=== PATIENT | female | born 1945 | race Two or more races ===

== ENCOUNTER 2018-07-19 23:43 | Emergency (ER) | payer OTHER, MEDICAID ==
[~2018-07-19] VITALS: Ht 157.5 cm; Wt 65.3 kg
[2018-07-20] MEDS ORDERED: LORazepam 2MG/ML-1ML VIAL IV ONE ×2 (00:30→03:30)
[2018-07-20] MEDS ORDERED: cloNIDine HCL 0.1 MG TAB PO ONE (01:45)
[2018-07-20] MEDS ORDERED: InsuLIN REG 1unit/0.01ml Soln (100units/ml) IV ONE (01:45)
[2018-07-20 02:08] LABS: Urine Bacteria MANY /hpf (None Seen); Urine Blood TRACE /uL (Negative); Urine WBC 87 /hpf (0 - 5)
[2018-07-20 04:30] VITALS: BP 122/55
== END 2018-07-20 04:24 | disposition home or self-care (01) ==
LOC: EDBD 23:43 → ER 23:47
DX: S20.212A Contusion of left front wall of thorax, initial encounter (principal); N39.0 Urinary tract infection, site not specified; E11.9 Type 2 diabetes mellitus without complications; E78.5 Hyperlipidemia, unspecified; I10 Essential (primary) hypertension; Z90.49 Acquired absence of other specified parts of digestive tract; Z88.6 Allergy status to analgesic agent; Z88.8 Allergy status to other drugs, medicaments and biological substances; W51.XXXA Accidental striking against or bumped into by another person, initial encounter; Y93.89 Activity, other specified; Y92.098 Other place in other non-institutional residence as the place of occurrence of the external cause; Y99.8 Other external cause status
CPT/HCPCS: 71250; 81001; 82962; 93005; 96374; 96375; 96376; 99284; J1815; J2060; J7030

== ENCOUNTER 2020-12-31 22:40 | Inpatient (IN) | payer OTHER ==
[~2020-12-31] VITALS: Ht 160 cm; Wt 99.6 kg
[~2020-12-31 22:40] MED LIST: LEVEMIR SC; LISI-275 PO
[2021-01-01 00:02] LABS: Basophils # (auto) 0.1 10 ^3/uL (0-0.2); Basophils % (auto) 1.8 % (0.0-2.0); Eosinophils # (auto) 0 10 ^3/uL (0-0.8); Eosinophils % (auto) 0.1 % (0.0-7.0); Hematocrit 38.7 % (36.0-46.0); Hemoglobin 13.2 g/dL (12.2-16.2); Lymphocytes # (auto) 0.4 10 ^3/uL (0.4-5.4); Lymphocytes % (auto) 8.9 % (10.0-50.0); Mean Corpuscular Hemoglobin 30.2 pg (28.0-32.0); Mean Corpuscular Hgb Conc. 34.1 g/dL (32.0-36.0); Mean Corpuscular Volume 88.4 fL (80.0-100.0); Monocytes # (auto) 0.4 10 ^3/uL (0-1.3); Monocytes % (auto) 7.8 % (0.0-12.0); Neutrophils # (auto) 3.8 10 ^3/uL (1.6-8.6); Neutrophils % (auto) 81.4 % (37.0-80.0); Nucleated Red Blood Cells % 0.1 %; Red Blood Cells 4.38 10^6/uL (4.0-5.20); Red Cell Distribution Width 14.1 % (11.8-14.3); White Blood Cell 4.7 10^3/uL (4.4-10.8)
[2021-01-01 00:19] LABS: INR 0.96 (0.9-1.15); Partial Thromboplastin Time 27.7 sec (23.6-33.0)
[2021-01-01 00:21] LABS: Albumin 2.3 g/dL (3.4-5.0); BUN/Creatinine Ratio 18.1; Calcium 8.2 mg/dL (8.5-10.1); Magnesium 2.3 mg/dL (1.6-2.6); Potassium 4.4 mmol/L (3.5-5.1)
[2021-01-01 00:26] LABS: Bilirubin, Total 0.4 mg/dL (0.2-1.0); Total Protein 7.1 g/dL (6.4-8.2)
[2021-01-01 03:18] LABS: Urine Amorphous Crystal FEW /hpf (None Seen); Urine Bacteria MANY /hpf (None Seen); Urine Blood 1+ /uL (Negative); Urine Specific Gravity 1.015 (1.001-1.035); Urine WBC 342 /hpf (0 - 5); Urine WBC Clumps PRESENT /hpf (None Seen)
[2021-01-01] MEDS ORDERED: HEPARIN DRIP/D5W 100UNITS/ML 250 ML IV SCH (04:15)
[2021-01-01] MEDS ORDERED: HEPARIN SODIUM (PORCINE) 5000 UNITS/ML 1ML VIAL IV ONE (04:15)
[2021-01-01] MEDS ORDERED: MORPHINE SULFATE INJECTION 2 MG/ML SYRG IV PRN ×3 (09:00→15:30)
[2021-01-01] MEDS ORDERED: NITROGLYCERIN 0.4 MG SL TAB SL PRN (09:00)
[2021-01-01 13:00] VITALS: BP 139/67
[2021-01-01] MEDS ORDERED: cefTRIAXone 1GM/50ML D5W 50 ML IV ONE (15:30)
[2021-01-01] MEDS ORDERED: ONDANSETRON HCL 4 MG/2 ML VIAL IV PRN (15:30)
[2021-01-01] MEDS ORDERED: DEXTROSE (50%) 50ML SYRG IV PRN (15:30)
[2021-01-01] MEDS ORDERED: REMDESIVIR PER PHARMACY 0 ML IV SCH (15:30)
[2021-01-01] MEDS: SODIUM CHLORIDE 0.9% 1,000 ML IV SCH (16:26)
[2021-01-01] MEDS: ACETAMINOPHEN 500 MG TAB PO PRN (16:27)
[2021-01-01 17:00] VITALS: BP 154/83
[2021-01-01] MEDS: ACCU-CHEK COMFORT CURVE STRIP VI SCH ×2 (17:46→22:06)
[2021-01-01] MEDS: InsuLIN REG 1unit/0.01ml Soln (100units/ml) SC SCH ×2 (17:47→22:08)
[2021-01-01] MEDS ORDERED: ATOR20TA50 PO (18:32)
[2021-01-01] MEDS ORDERED: CLOP75TA70 PO (18:32)
[2021-01-01] MEDS ORDERED: DONETAB6 PO (18:32)
[2021-01-01] MEDS ORDERED: PRIM50TA27 PO (18:32)
[2021-01-01] MEDS ORDERED: ALEN70TA74 PO (18:32)
[2021-01-01] MEDS ORDERED: ASPI-543 PO (18:32)
[2021-01-01] MEDS ORDERED: MEMA1TAB3 PO (18:32)
[2021-01-01] MEDS ORDERED: LEVEMIR SC (18:33)
[2021-01-01] MEDS ORDERED: HYDR1TAB97 PO (18:33)
[2021-01-01] MEDS ORDERED: INSU1INJ3 SC (18:33)
[2021-01-01 19:21] LABS: Albumin 1.9 g/dL (3.4-5.0); Calcium 7.8 mg/dL (8.5-10.1); Potassium 4.3 mmol/L (3.5-5.1)
[2021-01-01 19:27] LABS: BUN/Creatinine Ratio 20.6; Bilirubin, Total 0.3 mg/dL (0.2-1.0); Total Protein 6.5 g/dL (6.4-8.2)
[2021-01-01 21:38] VITALS: BP 101/59
[2021-01-01] MEDS ORDERED: ENOXAPARIN SOD 40 MG/0.4 ML SYRINGE SC SCH (22:00)
[2021-01-01] MEDS: FLORASTOR (S. BOULARDII) 250 MG CAP PO SCH (22:06)
[2021-01-01] MEDS: DOXYCYCLINE 100MG/250ML 250 ML IV SCH (22:06)
[2021-01-01] MEDS: BUDESONIDE (INHALATION) 180 MCG IH IN SCH (22:11)
[2021-01-01] MEDS: ALBUTEROL SULF HFA 90MCG INH 200DOSE IN PRN (22:11)
[2021-01-02] MEDS: ACETAMINOPHEN 500 MG TAB PO PRN ×2 (01:28→08:17)
[2021-01-02] MEDS: SODIUM CHLORIDE 0.9% 1,000 ML IV SCH ×3 (06:57→23:14)
[2021-01-02] MEDS: ACCU-CHEK COMFORT CURVE STRIP VI SCH ×4 (06:57→22:00)
[2021-01-02] MEDS: InsuLIN REG 1unit/0.01ml Soln (100units/ml) SC SCH ×4 (06:59→23:07)
[2021-01-02] MEDS: ALBUTEROL SULF HFA 90MCG INH 200DOSE IN PRN (07:06)
[2021-01-02] MEDS: BUDESONIDE (INHALATION) 180 MCG IH IN SCH ×2 (07:07→22:00)
[2021-01-02] MEDS: cefTRIAXone 1GM/50ML D5W 50 ML IV SCH (08:17)
[2021-01-02 09:00] VITALS: BP 136/95
[2021-01-02] MEDS ORDERED: IVERMECTIN 3 MG TAB PO SCH (10:00)
[2021-01-02 10:28] LABS: Basophils # (auto) 0 10 ^3/uL (0-0.2); Basophils % (auto) 0.5 % (0.0-2.0); Eosinophils # (auto) 0 10 ^3/uL (0-0.8); Hematocrit 33.1 % (36.0-46.0); Hemoglobin 11.4 g/dL (12.2-16.2); Lymphocytes # (auto) 0.5 10 ^3/uL (0.4-5.4); Mean Corpuscular Hemoglobin 29.8 pg (28.0-32.0); Mean Corpuscular Hgb Conc. 34.5 g/dL (32.0-36.0); Mean Corpuscular Volume 86.5 fL (80.0-100.0); Monocytes # (auto) 0.5 10 ^3/uL (0-1.3); Monocytes % (auto) 13.4 % (0.0-12.0); Neutrophils # (auto) 2.9 10 ^3/uL (1.6-8.6); Neutrophils % (auto) 73.1 % (37.0-80.0); Nucleated Red Blood Cells % 0.1 %; Red Blood Cells 3.83 10^6/uL (4.0-5.20); Red Cell Distribution Width 14.1 % (11.8-14.3); White Blood Cell 3.9 10^3/uL (4.4-10.8)
[2021-01-02 10:50] LABS: Albumin 1.7 g/dL (3.4-5.0); Calcium 7.6 mg/dL (8.5-10.1)
[2021-01-02 10:53] LABS: BUN/Creatinine Ratio 18.8; Bilirubin, Total 0.2 mg/dL (0.2-1.0); Total Protein 5.9 g/dL (6.4-8.2)
[2021-01-02] MEDS: DexAMETHasone SOD PHOS 10MG/1ML VIAL INJ IV SCH (11:12)
[2021-01-02] MEDS: CHOLECALCIFEROL (VITD3) 2,000 UNIT CAP/TAB PO SCH (11:16)
[2021-01-02] MEDS: ASCORBIC ACID 1,000 MG TAB PO SCH (11:16)
[2021-01-02] MEDS: DOXYCYCLINE 100MG/250ML 250 ML IV SCH (11:16)
[2021-01-02] MEDS: FLORASTOR (S. BOULARDII) 250 MG CAP PO SCH ×2 (11:16→22:26)
[2021-01-02] MEDS: ENOXAPARIN SOD 40 MG/0.4 ML SYRINGE SC SCH (11:18)
[2021-01-02 13:00] VITALS: BP 129/68
[2021-01-02 17:00] VITALS: BP 119/66
[2021-01-02] MEDS ORDERED: HUMULIN SC SCH (18:00)
[2021-01-02 22:00] VITALS: BP 107/59
[2021-01-02] MEDS: DONEPEZIL HYDROCHLORIDE 5 MG TAB PO SCH (22:27)
[2021-01-02] MEDS: ATORVASTATIN 20 MG TAB PO SCH (22:27)
[2021-01-02] MEDS: MEMANTINE HCL 5 MG TAB PO SCH (22:27)
[2021-01-02] MEDS: INSULIN LANTUS (GLARGINE) 1 /0.01ml (100units/ml) SC SCH (23:03)
[2021-01-03] MEDS: ALBUTEROL SULF HFA 90MCG INH 200DOSE IN PRN ×3 (01:25→22:08)
[2021-01-03 05:00] VITALS: BP 153/70
[2021-01-03] MEDS: ACCU-CHEK COMFORT CURVE STRIP VI SCH ×4 (06:29→21:48)
[2021-01-03] MEDS: InsuLIN REG 1unit/0.01ml Soln (100units/ml) SC SCH ×4 (06:31→21:50)
[2021-01-03] MEDS ORDERED: ALENDRONATE SODIUM 10 MG TAB PO SCH (07:00)
[2021-01-03] MEDS: BUDESONIDE (INHALATION) 180 MCG IH IN SCH ×2 (07:33→22:08)
[2021-01-03] MEDS: SODIUM CHLORIDE 0.9% 1,000 ML IV SCH (08:00)
[2021-01-03 08:05] LABS: Basophils # (auto) 0 10 ^3/uL (0-0.2); Basophils % (auto) 0.3 % (0.0-2.0); Eosinophils # (auto) 0 10 ^3/uL (0-0.8); Hematocrit 33.8 % (36.0-46.0); Hemoglobin 11.5 g/dL (12.2-16.2); Lymphocytes # (auto) 0.5 10 ^3/uL (0.4-5.4); Lymphocytes % (auto) 14.3 % (10.0-50.0); Mean Corpuscular Hemoglobin 29.9 pg (28.0-32.0); Mean Corpuscular Hgb Conc. 34.2 g/dL (32.0-36.0); Mean Corpuscular Volume 87.6 fL (80.0-100.0); Monocytes # (auto) 0.4 10 ^3/uL (0-1.3); Monocytes % (auto) 10.9 % (0.0-12.0); Neutrophils # (auto) 2.5 10 ^3/uL (1.6-8.6); Neutrophils % (auto) 74.5 % (37.0-80.0); Nucleated Red Blood Cells % 0.2 %; Red Blood Cells 3.85 10^6/uL (4.0-5.20); Red Cell Distribution Width 13.5 % (11.8-14.3); White Blood Cell 3.4 10^3/uL (4.4-10.8)
[2021-01-03 08:21] LABS: Albumin 1.5 g/dL (3.4-5.0); Calcium 7.5 mg/dL (8.5-10.1); Potassium 4.1 mmol/L (3.5-5.1)
[2021-01-03 08:23] LABS: BUN/Creatinine Ratio 21.3
[2021-01-03 08:26] LABS: Bilirubin, Total 0.2 mg/dL (0.2-1.0); Total Protein 5.9 g/dL (6.4-8.2)
[2021-01-03 09:00] VITALS: BP 144/75
[2021-01-03] MEDS: ENOXAPARIN SOD 40 MG/0.4 ML SYRINGE SC SCH (09:40)
[2021-01-03] MEDS: DexAMETHasone SOD PHOS 10MG/1ML VIAL INJ IV SCH (09:40)
[2021-01-03] MEDS: CHOLECALCIFEROL (VITD3) 2,000 UNIT CAP/TAB PO SCH (09:40)
[2021-01-03] MEDS: MEMANTINE HCL 5 MG TAB PO SCH ×2 (09:40→21:45)
[2021-01-03] MEDS: CLOPIDOGREL BISULFATE 75 MG TAB PO SCH (09:41)
[2021-01-03] MEDS: FLORASTOR (S. BOULARDII) 250 MG CAP PO SCH ×2 (09:41→21:45)
[2021-01-03] MEDS: cefTRIAXone 1GM/50ML D5W 50 ML IV SCH (09:41)
[2021-01-03] MEDS: ASPirin-EC 81 mg tab PO SCH (09:41)
[2021-01-03] MEDS: ASCORBIC ACID 1,000 MG TAB PO SCH (09:41)
[2021-01-03 13:00] VITALS: BP 142/62
[2021-01-03 17:00] VITALS: BP 120/62
[2021-01-03] MEDS ORDERED: REMDESIVIR PER PHARMACY 0 ML IV SCH (19:15)
[2021-01-03] MEDS: ATORVASTATIN 20 MG TAB PO SCH (21:45)
[2021-01-03] MEDS: DONEPEZIL HYDROCHLORIDE 5 MG TAB PO SCH (21:46)
[2021-01-03] MEDS: INSULIN LANTUS (GLARGINE) 1 /0.01ml (100units/ml) SC SCH (21:48)
[2021-01-03 22:00] VITALS: BP 127/57
[2021-01-04 05:00] VITALS: BP 155/67
[2021-01-04] MEDS: ACCU-CHEK COMFORT CURVE STRIP VI SCH ×4 (06:23→22:00)
[2021-01-04] MEDS: InsuLIN REG 1unit/0.01ml Soln (100units/ml) SC SCH ×4 (06:26→22:36)
[2021-01-04] MEDS: BUDESONIDE (INHALATION) 180 MCG IH IN SCH ×2 (07:07→22:00)
[2021-01-04] MEDS: ALBUTEROL SULF HFA 90MCG INH 200DOSE IN PRN ×2 (07:07→22:54)
[2021-01-04 07:14] LABS: Albumin 1.6 g/dL (3.4-5.0); Potassium 4.2 mmol/L (3.5-5.1)
[2021-01-04 07:17] LABS: BUN/Creatinine Ratio 20.5
[2021-01-04 07:20] LABS: Bilirubin, Total 0.2 mg/dL (0.2-1.0); Total Protein 6.4 g/dL (6.4-8.2)
[2021-01-04 09:00] VITALS: BP 111/78
[2021-01-04] MEDS: cefTRIAXone 1GM/50ML D5W 50 ML IV SCH (09:23)
[2021-01-04] MEDS: DexAMETHasone SOD PHOS 10MG/1ML VIAL INJ IV SCH (09:24)
[2021-01-04] MEDS: ASCORBIC ACID 1,000 MG TAB PO SCH (09:24)
[2021-01-04] MEDS: ASPirin-EC 81 mg tab PO SCH (09:24)
[2021-01-04] MEDS: CHOLECALCIFEROL (VITD3) 2,000 UNIT CAP/TAB PO SCH (09:24)
[2021-01-04] MEDS: FLORASTOR (S. BOULARDII) 250 MG CAP PO SCH ×2 (09:24→22:11)
[2021-01-04] MEDS: ENOXAPARIN SOD 40 MG/0.4 ML SYRINGE SC SCH (09:24)
[2021-01-04] MEDS: CLOPIDOGREL BISULFATE 75 MG TAB PO SCH (09:24)
[2021-01-04] MEDS: MEMANTINE HCL 5 MG TAB PO SCH ×2 (09:24→22:11)
[2021-01-04] MEDS: ACETAMINOPHEN 500 MG TAB PO PRN (09:41)
[2021-01-04 13:00] VITALS: BP 135/67
[2021-01-04 17:00] VITALS: BP 133/67
[2021-01-04 22:00] VITALS: BP 128/63
[2021-01-04] MEDS: DONEPEZIL HYDROCHLORIDE 5 MG TAB PO SCH (22:11)
[2021-01-04] MEDS: ATORVASTATIN 20 MG TAB PO SCH (22:12)
[2021-01-04] MEDS: INSULIN LANTUS (GLARGINE) 1 /0.01ml (100units/ml) SC SCH (22:38)
[2021-01-05 05:00] VITALS: BP 126/56
[2021-01-05] MEDS: ACCU-CHEK COMFORT CURVE STRIP VI SCH ×4 (06:29→21:54)
[2021-01-05] MEDS: InsuLIN REG 1unit/0.01ml Soln (100units/ml) SC SCH ×4 (06:29→21:53)
[2021-01-05 07:11] LABS: Albumin 1.4 g/dL (3.4-5.0); Calcium 8.1 mg/dL (8.5-10.1); Potassium 4.3 mmol/L (3.5-5.1)
[2021-01-05 07:14] LABS: BUN/Creatinine Ratio 22.7
[2021-01-05 07:28] LABS: Bilirubin, Total 0.2 mg/dL (0.2-1.0); Total Protein 6.2 g/dL (6.4-8.2)
[2021-01-05] MEDS: ASPirin-EC 81 mg tab PO SCH (08:47)
[2021-01-05] MEDS: cefTRIAXone 1GM/50ML D5W 50 ML IV SCH (08:47)
[2021-01-05] MEDS: MEMANTINE HCL 5 MG TAB PO SCH ×2 (08:47→21:20)
[2021-01-05] MEDS: FLORASTOR (S. BOULARDII) 250 MG CAP PO SCH ×2 (08:47→21:20)
[2021-01-05] MEDS: DexAMETHasone SOD PHOS 10MG/1ML VIAL INJ IV SCH (08:47)
[2021-01-05] MEDS: CLOPIDOGREL BISULFATE 75 MG TAB PO SCH (08:47)
[2021-01-05] MEDS: ASCORBIC ACID 1,000 MG TAB PO SCH (08:47)
[2021-01-05] MEDS: CHOLECALCIFEROL (VITD3) 2,000 UNIT CAP/TAB PO SCH (08:48)
[2021-01-05] MEDS: ENOXAPARIN SOD 40 MG/0.4 ML SYRINGE SC SCH (08:48)
[2021-01-05 09:00] VITALS: BP_SYST 106; BP_SYST 150; BP_DIAS 60; BP_DIAS 65
[2021-01-05] MEDS: ALBUTEROL SULF HFA 90MCG INH 200DOSE IN PRN ×2 (09:33→20:19)
[2021-01-05] MEDS: BUDESONIDE (INHALATION) 180 MCG IH IN SCH ×2 (09:33→20:19)
[2021-01-05 13:00] VITALS: BP 125/62
[2021-01-05 17:00] VITALS: BP 150/89
[2021-01-05] MEDS: DONEPEZIL HYDROCHLORIDE 5 MG TAB PO SCH (21:21)
[2021-01-05] MEDS: ATORVASTATIN 20 MG TAB PO SCH (21:21)
[2021-01-05] MEDS: INSULIN LANTUS (GLARGINE) 1 /0.01ml (100units/ml) SC SCH (21:54)
[2021-01-05 22:00] VITALS: BP 128/69
[2021-01-06 05:00] VITALS: BP 131/68
[2021-01-06] MEDS: InsuLIN REG 1unit/0.01ml Soln (100units/ml) SC SCH ×4 (06:19→22:49)
[2021-01-06] MEDS: ACCU-CHEK COMFORT CURVE STRIP VI SCH ×4 (06:19→22:40)
[2021-01-06 06:41] LABS: Basophils # (auto) 0 10 ^3/uL (0-0.2); Basophils % (auto) 0.1 % (0.0-2.0); Eosinophils # (auto) 0 10 ^3/uL (0-0.8); Eosinophils % (auto) 0.1 % (0.0-7.0); Hematocrit 33.7 % (36.0-46.0); Hemoglobin 11.9 g/dL (12.2-16.2); Lymphocytes # (auto) 0.9 10 ^3/uL (0.4-5.4); Lymphocytes % (auto) 12.8 % (10.0-50.0); Mean Corpuscular Hgb Conc. 35.2 g/dL (32.0-36.0); Mean Corpuscular Volume 85.3 fL (80.0-100.0); Monocytes # (auto) 0.5 10 ^3/uL (0-1.3); Monocytes % (auto) 7.9 % (0.0-12.0); Neutrophils # (auto) 5.4 10 ^3/uL (1.6-8.6); Neutrophils % (auto) 79.1 % (37.0-80.0); Red Blood Cells 3.95 10^6/uL (4.0-5.20); Red Cell Distribution Width 13.9 % (11.8-14.3); White Blood Cell 6.8 10^3/uL (4.4-10.8)
[2021-01-06 07:00] LABS: Calcium 8.1 mg/dL (8.5-10.1); Potassium 4.3 mmol/L (3.5-5.1)
[2021-01-06 07:06] LABS: Albumin 1.4 g/dL (3.4-5.0); BUN/Creatinine Ratio 25.1; Bilirubin, Total 0.3 mg/dL (0.2-1.0)
[2021-01-06] MEDS: BUDESONIDE (INHALATION) 180 MCG IH IN SCH ×2 (08:01→20:01)
[2021-01-06] MEDS: ALBUTEROL SULF HFA 90MCG INH 200DOSE IN PRN ×2 (08:01→20:01)
[2021-01-06 09:00] VITALS: BP 149/58
[2021-01-06] MEDS: CLOPIDOGREL BISULFATE 75 MG TAB PO SCH (09:19)
[2021-01-06] MEDS: cefTRIAXone 1GM/50ML D5W 50 ML IV SCH (09:19)
[2021-01-06] MEDS: DexAMETHasone SOD PHOS 10MG/1ML VIAL INJ IV SCH (09:19)
[2021-01-06] MEDS: ASPirin-EC 81 mg tab PO SCH (09:19)
[2021-01-06] MEDS: MEMANTINE HCL 5 MG TAB PO SCH ×2 (09:19→22:44)
[2021-01-06] MEDS: ASCORBIC ACID 1,000 MG TAB PO SCH (09:19)
[2021-01-06] MEDS: CHOLECALCIFEROL (VITD3) 2,000 UNIT CAP/TAB PO SCH (09:20)
[2021-01-06] MEDS: FLORASTOR (S. BOULARDII) 250 MG CAP PO SCH ×2 (12:00→22:44)
[2021-01-06] MEDS: ENOXAPARIN SOD 40 MG/0.4 ML SYRINGE SC SCH (12:00)
[2021-01-06 13:00] VITALS: BP 159/77
[2021-01-06 17:00] VITALS: BP 124/64
[2021-01-06 22:00] VITALS: BP 124/60
[2021-01-06] MEDS: ATORVASTATIN 20 MG TAB PO SCH (22:44)
[2021-01-06] MEDS: DONEPEZIL HYDROCHLORIDE 5 MG TAB PO SCH (22:44)
[2021-01-06] MEDS: INSULIN LANTUS (GLARGINE) 1 /0.01ml (100units/ml) SC SCH (22:45)
[2021-01-07 05:00] VITALS: BP 147/81
[2021-01-07 06:40] LABS: Hematocrit 36.4 % (36.0-46.0); Hemoglobin 12.6 g/dL (12.2-16.2); Mean Corpuscular Hemoglobin 29.4 pg (28.0-32.0); Mean Corpuscular Hgb Conc. 34.5 g/dL (32.0-36.0); Mean Corpuscular Volume 85.1 fL (80.0-100.0); Red Blood Cells 4.28 10^6/uL (4.0-5.20); Red Cell Distribution Width 13.9 % (11.8-14.3); White Blood Cell 6.2 10^3/uL (4.4-10.8)
[2021-01-07 06:50] LABS: Band Neutrophils % (manual) 0; Basophils % (manual) 0 (0.0-2.0); Blast Cells 0; Eosinophils % (manual) 0 (0-7); Promyelocytes % 0
[2021-01-07] MEDS: InsuLIN REG 1unit/0.01ml Soln (100units/ml) SC SCH ×4 (06:53→22:19)
[2021-01-07 07:00] LABS: Potassium 4.6 mmol/L (3.5-5.1)
[2021-01-07] MEDS: ACCU-CHEK COMFORT CURVE STRIP VI SCH ×4 (07:00→21:56)
[2021-01-07 07:08] LABS: Albumin 1.3 g/dL (3.4-5.0); BUN/Creatinine Ratio 31.7; Bilirubin, Total 0.2 mg/dL (0.2-1.0); Calcium 8.2 mg/dL (8.5-10.1); Total Protein 6.4 g/dL (6.4-8.2)
[2021-01-07] MEDS: BUDESONIDE (INHALATION) 180 MCG IH IN SCH ×2 (07:34→21:06)
[2021-01-07 07:51] LABS: Lymphocytes % (manual) 7 (10.0-50.0); Metamyelocytes % 1; Monocytes % (manual) 9 (0-12); Myelocytes % 1; Reactive Lymphocytes 1
[2021-01-07 09:00] VITALS: BP 156/64
[2021-01-07] MEDS: FLORASTOR (S. BOULARDII) 250 MG CAP PO SCH ×2 (10:00→21:55)
[2021-01-07] MEDS: ASCORBIC ACID 1,000 MG TAB PO SCH ×2 (10:00→11:35)
[2021-01-07] MEDS: cefTRIAXone 1GM/50ML D5W 50 ML IV SCH (11:34)
[2021-01-07] MEDS: DexAMETHasone SOD PHOS 10MG/1ML VIAL INJ IV SCH (11:34)
[2021-01-07] MEDS: ASPirin-EC 81 mg tab PO SCH (11:34)
[2021-01-07] MEDS: MEMANTINE HCL 5 MG TAB PO SCH ×2 (11:35→21:56)
[2021-01-07] MEDS: CLOPIDOGREL BISULFATE 75 MG TAB PO SCH (11:35)
[2021-01-07] MEDS: CHOLECALCIFEROL (VITD3) 2,000 UNIT CAP/TAB PO SCH (11:36)
[2021-01-07] MEDS: ENOXAPARIN SOD 40 MG/0.4 ML SYRINGE SC SCH (11:36)
[2021-01-07] MEDS: ALBUTEROL SULF HFA 90MCG INH 200DOSE IN PRN ×2 (12:01→21:06)
[2021-01-07 13:00] VITALS: BP 147/78
[2021-01-07] MEDS ORDERED: REMDESIVIR PER PHARMACY 0 ML IV SCH (16:30)
[2021-01-07] MEDS ORDERED: REMDESIVIR 200 MG in NS 210ml LOADING DOSE ADULT IV ONE (16:30)
[2021-01-07 17:00] VITALS: BP 138/72
[2021-01-07] MEDS: DONEPEZIL HYDROCHLORIDE 5 MG TAB PO SCH (21:55)
[2021-01-07] MEDS: ATORVASTATIN 20 MG TAB PO SCH (21:56)
[2021-01-07 22:00] VITALS: BP 139/75
[2021-01-07] MEDS: INSULIN LANTUS (GLARGINE) 1 /0.01ml (100units/ml) SC SCH (22:19)
[2021-01-08 04:55] VITALS: BP 165/89
[2021-01-08] MEDS ORDERED: LABETALOL HCL 5 MG/ML 4ML SYRINGE IV ONE ×2 (06:00→06:05)
[2021-01-08] MEDS: InsuLIN REG 1unit/0.01ml Soln (100units/ml) SC SCH ×4 (06:41→22:00)
[2021-01-08] MEDS: ACCU-CHEK COMFORT CURVE STRIP VI SCH ×4 (06:41→22:18)
[2021-01-08] MEDS: BUDESONIDE (INHALATION) 180 MCG IH IN SCH ×2 (07:11→21:42)
[2021-01-08] MEDS: ALBUTEROL SULF HFA 90MCG INH 200DOSE IN PRN ×2 (07:11→21:42)
[2021-01-08 07:21] LABS: Anion Gap 10 (5-15); BUN/Creatinine Ratio 31.1; Blood Urea Nitrogen 50 mg/dL (7-18); Calcium 7.8 mg/dL (8.5-10.1); Carbon Dioxide 17 mmol/L (21-32); Chloride 111 mmol/L (98-107); GFR African American 40 mL/min; GFR Non-African American 33 mL/min; Glucose 67 mg/dL (74-106); Potassium 4.4 mmol/L (3.5-5.1); Sodium 138 mmol/L (136-145)
[2021-01-08 07:25] LABS: Basophils # (auto) 0 10 ^3/uL (0-0.2); Basophils % (auto) 0.3 % (0.0-2.0); Eosinophils # (auto) 0 10 ^3/uL (0-0.8); Hematocrit 35.2 % (36.0-46.0); Hemoglobin 12.2 g/dL (12.2-16.2); Lymphocytes # (auto) 0.7 10 ^3/uL (0.4-5.4); Mean Corpuscular Hemoglobin 29.5 pg (28.0-32.0); Mean Corpuscular Hgb Conc. 34.6 g/dL (32.0-36.0); Mean Corpuscular Volume 85.1 fL (80.0-100.0); Monocytes # (auto) 0.7 10 ^3/uL (0-1.3); Monocytes % (auto) 6.3 % (0.0-12.0); Neutrophils # (auto) 9.6 10 ^3/uL (1.6-8.6); Neutrophils % (auto) 87.4 % (37.0-80.0); Nucleated Red Blood Cells % 0.1 %; Red Blood Cells 4.13 10^6/uL (4.0-5.20); Red Cell Distribution Width 13.7 % (11.8-14.3)
[2021-01-08 08:17] LABS: Alanine Aminotransferase 27 U/L (13-56); Albumin 1.4 g/dL (3.4-5.0); Aspartate Aminotransferase 39 U/L (15-37)
[2021-01-08 08:19] LABS: Alkaline Phosphatase 110 U/L (45-117); Bilirubin, Total 0.2 mg/dL (0.2-1.0); Total Protein 6.4 g/dL (6.4-8.2)
[2021-01-08 09:00] VITALS: BP 158/81
[2021-01-08] MEDS: ASPirin-EC 81 mg tab PO SCH (10:10)
[2021-01-08] MEDS: DexAMETHasone SOD PHOS 10MG/1ML VIAL INJ IV SCH (10:10)
[2021-01-08] MEDS: FLORASTOR (S. BOULARDII) 250 MG CAP PO SCH ×2 (10:10→22:17)
[2021-01-08] MEDS: cefTRIAXone 1GM/50ML D5W 50 ML IV SCH (10:10)
[2021-01-08] MEDS: CLOPIDOGREL BISULFATE 75 MG TAB PO SCH (10:11)
[2021-01-08] MEDS: ASCORBIC ACID 1,000 MG TAB PO SCH (10:11)
[2021-01-08] MEDS: MEMANTINE HCL 5 MG TAB PO SCH ×2 (10:11→22:17)
[2021-01-08] MEDS: CHOLECALCIFEROL (VITD3) 2,000 UNIT CAP/TAB PO SCH (10:11)
[2021-01-08] MEDS: ENOXAPARIN SOD 40 MG/0.4 ML SYRINGE SC SCH (10:12)
[2021-01-08 13:00] VITALS: BP 145/74
[2021-01-08] MEDS: REMDESIVIR 100mg 100 MG in SODIUM CHL 0.9% 230 ML IV SCH (16:21)
[2021-01-08 16:40] VITALS: BP 150/84
[2021-01-08 20:51] VITALS: BP 154/71
[2021-01-08] MEDS: INSULIN LANTUS (GLARGINE) 1 /0.01ml (100units/ml) SC SCH (22:00)
[2021-01-08] MEDS: ATORVASTATIN 20 MG TAB PO SCH (22:17)
[2021-01-08] MEDS: DONEPEZIL HYDROCHLORIDE 5 MG TAB PO SCH (22:17)
[2021-01-09 04:23] VITALS: BP 180/120
[2021-01-09] MEDS: InsuLIN REG 1unit/0.01ml Soln (100units/ml) SC SCH ×4 (06:35→21:35)
[2021-01-09] MEDS: ACCU-CHEK COMFORT CURVE STRIP VI SCH ×4 (06:35→21:34)
[2021-01-09] MEDS: BUDESONIDE (INHALATION) 180 MCG IH IN SCH ×2 (06:37→22:21)
[2021-01-09] MEDS: ALBUTEROL SULF HFA 90MCG INH 200DOSE IN PRN ×2 (06:37→22:21)
[2021-01-09] MEDS ORDERED: hydrALAZINE HCL 20 MG/ML VL IV PRN (07:30)
[2021-01-09 07:38] LABS: Albumin 1.5 g/dL (3.4-5.0); Calcium 7.8 mg/dL (8.5-10.1); Potassium 4.4 mmol/L (3.5-5.1)
[2021-01-09 07:41] LABS: BUN/Creatinine Ratio 32.5; Bilirubin, Total 0.3 mg/dL (0.2-1.0); Total Protein 6.3 g/dL (6.4-8.2)
[2021-01-09 08:28] LABS: Hematocrit 36.9 % (36.0-46.0); Hemoglobin 12.7 g/dL (12.2-16.2); Mean Corpuscular Hemoglobin 29.6 pg (28.0-32.0); Mean Corpuscular Hgb Conc. 34.4 g/dL (32.0-36.0); Mean Corpuscular Volume 86.1 fL (80.0-100.0); Red Blood Cells 4.29 10^6/uL (4.0-5.20); Red Cell Distribution Width 13.9 % (11.8-14.3); White Blood Cell 8.3 10^3/uL (4.4-10.8)
[2021-01-09 08:33] LABS: Band Neutrophils % (manual) 0; Basophils % (manual) 0 (0.0-2.0); Blast Cells 0; Eosinophils % (manual) 0 (0-7); Metamyelocytes % 0; Myelocytes % 0; Promyelocytes % 0; Reactive Lymphocytes 0
[2021-01-09 08:51] LABS: Lymphocytes % (manual) 1 (10.0-50.0); Monocytes % (manual) 6 (0-12)
[2021-01-09 09:00] VITALS: BP 146/79
[2021-01-09] MEDS: CHOLECALCIFEROL (VITD3) 2,000 UNIT CAP/TAB PO SCH (10:00)
[2021-01-09] MEDS: ASCORBIC ACID 1,000 MG TAB PO SCH (10:00)
[2021-01-09] MEDS: ENOXAPARIN SOD 40 MG/0.4 ML SYRINGE SC SCH (10:22)
[2021-01-09] MEDS: CLOPIDOGREL BISULFATE 75 MG TAB PO SCH (10:23)
[2021-01-09] MEDS: ASPirin-EC 81 mg tab PO SCH (10:24)
[2021-01-09] MEDS: MEMANTINE HCL 5 MG TAB PO SCH ×2 (10:24→21:34)
[2021-01-09] MEDS: FLORASTOR (S. BOULARDII) 250 MG CAP PO SCH ×2 (10:24→21:34)
[2021-01-09] MEDS: DexAMETHasone SOD PHOS 10MG/1ML VIAL INJ IV SCH (11:18)
[2021-01-09] MEDS: cefTRIAXone 1GM/50ML D5W 50 ML IV SCH (11:18)
[2021-01-09 13:30] VITALS: BP 143/63
[2021-01-09] MEDS: REMDESIVIR 100mg 100 MG in SODIUM CHL 0.9% 230 ML IV SCH (14:46)
[2021-01-09] MEDS ORDERED: HALOPERIDOL LACTATE 5 MG/ML INJ VIAL IV PRN (16:15)
[2021-01-09 17:00] VITALS: BP 148/72
[2021-01-09] MEDS: ATORVASTATIN 20 MG TAB PO SCH (21:34)
[2021-01-09] MEDS: DONEPEZIL HYDROCHLORIDE 5 MG TAB PO SCH (21:34)
[2021-01-09] MEDS: INSULIN LANTUS (GLARGINE) 1 /0.01ml (100units/ml) SC SCH (21:36)
[2021-01-09 22:00] VITALS: BP 158/77
[2021-01-10 04:53] VITALS: BP 133/62
[2021-01-10] MEDS: InsuLIN REG 1unit/0.01ml Soln (100units/ml) SC SCH ×4 (06:19→22:05)
[2021-01-10] MEDS: ACCU-CHEK COMFORT CURVE STRIP VI SCH ×4 (06:19→22:03)
[2021-01-10] MEDS: ALBUTEROL SULF HFA 90MCG INH 200DOSE IN PRN ×2 (06:48→22:29)
[2021-01-10] MEDS: BUDESONIDE (INHALATION) 180 MCG IH IN SCH ×2 (06:48→22:29)
[2021-01-10 07:04] LABS: Hematocrit 35.9 % (36.0-46.0); Hemoglobin 12.1 g/dL (12.2-16.2); Mean Corpuscular Hemoglobin 29.3 pg (28.0-32.0); Mean Corpuscular Hgb Conc. 33.7 g/dL (32.0-36.0); Red Blood Cells 4.13 10^6/uL (4.0-5.20); Red Cell Distribution Width 14.3 % (11.8-14.3)
[2021-01-10 07:47] LABS: Albumin 1.3 g/dL (3.4-5.0); BUN/Creatinine Ratio 30.8; Calcium 7.7 mg/dL (8.5-10.1); Potassium 4.5 mmol/L (3.5-5.1)
[2021-01-10 07:50] LABS: Band Neutrophils % (manual) 0; Basophils % (manual) 0 (0.0-2.0); Bilirubin, Total 0.2 mg/dL (0.2-1.0); Blast Cells 0; Eosinophils % (manual) 0 (0-7); Metamyelocytes % 0; Myelocytes % 0; Promyelocytes % 0; Reactive Lymphocytes 0; Total Protein 6.2 g/dL (6.4-8.2)
[2021-01-10 09:00] VITALS: BP 154/79
[2021-01-10 09:24] LABS: Lymphocytes % (manual) 14 (10.0-50.0); Monocytes % (manual) 4 (0-12)
[2021-01-10] MEDS: DexAMETHasone SOD PHOS 10MG/1ML VIAL INJ IV SCH (09:47)
[2021-01-10] MEDS: MEMANTINE HCL 5 MG TAB PO SCH ×2 (09:47→22:03)
[2021-01-10] MEDS: FLORASTOR (S. BOULARDII) 250 MG CAP PO SCH ×2 (09:47→22:03)
[2021-01-10] MEDS: cefTRIAXone 1GM/50ML D5W 50 ML IV SCH (09:47)
[2021-01-10] MEDS: ASPirin-EC 81 mg tab PO SCH (09:47)
[2021-01-10] MEDS: CHOLECALCIFEROL (VITD3) 2,000 UNIT CAP/TAB PO SCH (09:48)
[2021-01-10] MEDS: CLOPIDOGREL BISULFATE 75 MG TAB PO SCH (09:48)
[2021-01-10] MEDS: ASCORBIC ACID 1,000 MG TAB PO SCH (09:48)
[2021-01-10] MEDS: ENOXAPARIN SOD 40 MG/0.4 ML SYRINGE SC SCH (10:21)
[2021-01-10 12:46] VITALS: BP 140/68
[2021-01-10] MEDS: SODIUM CHLORIDE 0.9% 1,000 ML IV SCH (15:10)
[2021-01-10] MEDS: REMDESIVIR 100mg 100 MG in SODIUM CHL 0.9% 230 ML IV SCH (15:10)
[2021-01-10 17:01] VITALS: BP 144/69
[2021-01-10 22:00] VITALS: BP 137/44
[2021-01-10] MEDS: DONEPEZIL HYDROCHLORIDE 5 MG TAB PO SCH (22:02)
[2021-01-10] MEDS: ATORVASTATIN 20 MG TAB PO SCH (22:03)
[2021-01-10] MEDS: INSULIN LANTUS (GLARGINE) 1 /0.01ml (100units/ml) SC SCH (22:05)
[2021-01-11 05:00] VITALS: BP 134/68
[2021-01-11] MEDS: ALBUTEROL SULF HFA 90MCG INH 200DOSE IN PRN ×2 (06:36→21:00)
[2021-01-11] MEDS: BUDESONIDE (INHALATION) 180 MCG IH IN SCH ×2 (06:36→21:00)
[2021-01-11] MEDS: InsuLIN REG 1unit/0.01ml Soln (100units/ml) SC SCH ×4 (06:39→22:00)
[2021-01-11] MEDS: ACCU-CHEK COMFORT CURVE STRIP VI SCH ×4 (06:39→22:00)
[2021-01-11 07:05] LABS: Basophils # (auto) 0 10 ^3/uL (0-0.2); Basophils % (auto) 0.1 % (0.0-2.0); Eosinophils # (auto) 0 10 ^3/uL (0-0.8); Eosinophils % (auto) 0.1 % (0.0-7.0); Hematocrit 33.3 % (36.0-46.0); Hemoglobin 11.3 g/dL (12.2-16.2); Lymphocytes # (auto) 0.4 10 ^3/uL (0.4-5.4); Mean Corpuscular Hemoglobin 29.3 pg (28.0-32.0); Mean Corpuscular Hgb Conc. 33.9 g/dL (32.0-36.0); Mean Corpuscular Volume 86.5 fL (80.0-100.0); Monocytes # (auto) 0.3 10 ^3/uL (0-1.3); Monocytes % (auto) 3.7 % (0.0-12.0); Neutrophils # (auto) 7.1 10 ^3/uL (1.6-8.6); Neutrophils % (auto) 91.1 % (37.0-80.0); Red Blood Cells 3.85 10^6/uL (4.0-5.20); Red Cell Distribution Width 13.9 % (11.8-14.3); White Blood Cell 7.8 10^3/uL (4.4-10.8)
[2021-01-11 07:22] LABS: Albumin 1.3 g/dL (3.4-5.0); BUN/Creatinine Ratio 33.9; Calcium 7.6 mg/dL (8.5-10.1); Potassium 4.2 mmol/L (3.5-5.1)
[2021-01-11 07:33] LABS: Bilirubin, Total 0.2 mg/dL (0.2-1.0); Total Protein 5.9 g/dL (6.4-8.2)
[2021-01-11 08:33] VITALS: BP 123/69
[2021-01-11] MEDS: cefTRIAXone 1GM/50ML D5W 50 ML IV SCH (09:07)
[2021-01-11] MEDS: DexAMETHasone SOD PHOS 10MG/1ML VIAL INJ IV SCH (09:08)
[2021-01-11] MEDS: ASPirin-EC 81 mg tab PO SCH (09:08)
[2021-01-11] MEDS: FLORASTOR (S. BOULARDII) 250 MG CAP PO SCH ×2 (09:09→23:18)
[2021-01-11] MEDS: CLOPIDOGREL BISULFATE 75 MG TAB PO SCH (09:09)
[2021-01-11] MEDS: MEMANTINE HCL 5 MG TAB PO SCH ×2 (09:09→23:18)
[2021-01-11] MEDS: ASCORBIC ACID 1,000 MG TAB PO SCH (09:10)
[2021-01-11] MEDS: ENOXAPARIN SOD 40 MG/0.4 ML SYRINGE SC SCH (09:10)
[2021-01-11] MEDS: CHOLECALCIFEROL (VITD3) 2,000 UNIT CAP/TAB PO SCH (09:10)
[2021-01-11 13:00] VITALS: BP 158/68
[2021-01-11] MEDS: SODIUM CHLORIDE 0.9% 1,000 ML IV SCH (14:45)
[2021-01-11 16:48] VITALS: BP 154/70
[2021-01-11 22:00] VITALS: BP 153/67
[2021-01-11] MEDS: INSULIN LANTUS (GLARGINE) 1 /0.01ml (100units/ml) SC SCH (22:00)
[2021-01-11] MEDS: ATORVASTATIN 20 MG TAB PO SCH (23:18)
[2021-01-11] MEDS: DONEPEZIL HYDROCHLORIDE 5 MG TAB PO SCH (23:18)
[2021-01-12 05:00] VITALS: BP 150/67
[2021-01-12] MEDS: BUDESONIDE (INHALATION) 180 MCG IH IN SCH ×2 (06:44→20:34)
[2021-01-12] MEDS: ALBUTEROL SULF HFA 90MCG INH 200DOSE IN PRN ×2 (06:44→20:34)
[2021-01-12] MEDS: InsuLIN REG 1unit/0.01ml Soln (100units/ml) SC SCH ×4 (07:00→22:42)
[2021-01-12] MEDS: ACCU-CHEK COMFORT CURVE STRIP VI SCH ×4 (07:00→22:40)
[2021-01-12 08:00] VITALS: BP 130/62
[2021-01-12 09:00] VITALS: BP 130/62
[2021-01-12] MEDS: DexAMETHasone SOD PHOS 10MG/1ML VIAL INJ IV SCH (09:26)
[2021-01-12] MEDS: cefTRIAXone 1GM/50ML D5W 50 ML IV SCH (09:26)
[2021-01-12] MEDS: CLOPIDOGREL BISULFATE 75 MG TAB PO SCH (09:27)
[2021-01-12] MEDS: ASPirin-EC 81 mg tab PO SCH (09:27)
[2021-01-12] MEDS: MEMANTINE HCL 5 MG TAB PO SCH ×2 (09:27→22:40)
[2021-01-12] MEDS: FLORASTOR (S. BOULARDII) 250 MG CAP PO SCH ×3 (09:27→22:40)
[2021-01-12] MEDS: ASCORBIC ACID 1,000 MG TAB PO SCH (09:27)
[2021-01-12] MEDS: ENOXAPARIN SOD 40 MG/0.4 ML SYRINGE SC SCH (09:28)
[2021-01-12] MEDS: CHOLECALCIFEROL (VITD3) 2,000 UNIT CAP/TAB PO SCH (09:28)
[2021-01-12 13:15] VITALS: BP 126/74
[2021-01-12 17:00] VITALS: BP 143/70
[2021-01-12 22:00] VITALS: BP 135/68
[2021-01-12] MEDS: ATORVASTATIN 20 MG TAB PO SCH (22:40)
[2021-01-12] MEDS: DONEPEZIL HYDROCHLORIDE 5 MG TAB PO SCH (22:40)
[2021-01-12] MEDS: INSULIN LANTUS (GLARGINE) 1 /0.01ml (100units/ml) SC SCH (22:42)
[2021-01-13 05:00] VITALS: BP 135/69
[2021-01-13] MEDS: ACCU-CHEK COMFORT CURVE STRIP VI SCH ×4 (06:04→22:24)
[2021-01-13] MEDS: InsuLIN REG 1unit/0.01ml Soln (100units/ml) SC SCH ×4 (06:05→22:25)
[2021-01-13] MEDS: ALBUTEROL SULF HFA 90MCG INH 200DOSE IN PRN ×2 (06:43→21:24)
[2021-01-13] MEDS: BUDESONIDE (INHALATION) 180 MCG IH IN SCH ×2 (06:44→21:24)
[2021-01-13 09:00] VITALS: BP 130/64
[2021-01-13] MEDS: ASPirin-EC 81 mg tab PO SCH (10:00)
[2021-01-13] MEDS: ENOXAPARIN SOD 40 MG/0.4 ML SYRINGE SC SCH (10:00)
[2021-01-13] MEDS: CLOPIDOGREL BISULFATE 75 MG TAB PO SCH (10:00)
[2021-01-13] MEDS: ASCORBIC ACID 1,000 MG TAB PO SCH (10:00)
[2021-01-13] MEDS: MEMANTINE HCL 5 MG TAB PO SCH ×2 (10:00→22:24)
[2021-01-13] MEDS: CHOLECALCIFEROL (VITD3) 2,000 UNIT CAP/TAB PO SCH (10:00)
[2021-01-13] MEDS: FLORASTOR (S. BOULARDII) 250 MG CAP PO SCH ×2 (10:00→22:24)
[2021-01-13] MEDS: DexAMETHasone SOD PHOS 10MG/1ML VIAL INJ IV SCH (11:07)
[2021-01-13 13:00] VITALS: BP 131/70
[2021-01-13 17:00] VITALS: BP 140/68
[2021-01-13 22:00] VITALS: BP 148/73
[2021-01-13] MEDS: DONEPEZIL HYDROCHLORIDE 5 MG TAB PO SCH (22:23)
[2021-01-13] MEDS: ATORVASTATIN 20 MG TAB PO SCH (22:24)
[2021-01-13] MEDS: INSULIN LANTUS (GLARGINE) 1 /0.01ml (100units/ml) SC SCH (22:24)
[2021-01-14 05:00] VITALS: BP 131/73
[2021-01-14] MEDS: ALBUTEROL SULF HFA 90MCG INH 200DOSE IN PRN ×2 (06:29→21:42)
[2021-01-14] MEDS: BUDESONIDE (INHALATION) 180 MCG IH IN SCH ×2 (06:30→21:41)
[2021-01-14] MEDS: ACCU-CHEK COMFORT CURVE STRIP VI SCH ×4 (06:35→21:43)
[2021-01-14] MEDS: InsuLIN REG 1unit/0.01ml Soln (100units/ml) SC SCH ×4 (06:40→21:52)
[2021-01-14 06:46] LABS: Basophils # (auto) 0 10 ^3/uL (0-0.2); Basophils % (auto) 0.3 % (0.0-2.0); Eosinophils # (auto) 0 10 ^3/uL (0-0.8); Hematocrit 34.2 % (36.0-46.0); Hemoglobin 11.2 g/dL (12.2-16.2); Lymphocytes # (auto) 0.4 10 ^3/uL (0.4-5.4); Lymphocytes % (auto) 2.5 % (10.0-50.0); Mean Corpuscular Hemoglobin 28.7 pg (28.0-32.0); Mean Corpuscular Hgb Conc. 32.9 g/dL (32.0-36.0); Mean Corpuscular Volume 87.3 fL (80.0-100.0); Monocytes # (auto) 0.3 10 ^3/uL (0-1.3); Monocytes % (auto) 2.4 % (0.0-12.0); Neutrophils # (auto) 13.3 10 ^3/uL (1.6-8.6); Neutrophils % (auto) 94.8 % (37.0-80.0); Red Blood Cells 3.91 10^6/uL (4.0-5.20); Red Cell Distribution Width 14.2 % (11.8-14.3)
[2021-01-14 06:58] LABS: Calcium 8.1 mg/dL (8.5-10.1); Potassium 4.5 mmol/L (3.5-5.1)
[2021-01-14 08:48] VITALS: BP 147/68
[2021-01-14] MEDS: MEMANTINE HCL 5 MG TAB PO SCH ×2 (10:00→21:48)
[2021-01-14] MEDS: FLORASTOR (S. BOULARDII) 250 MG CAP PO SCH ×2 (10:00→21:47)
[2021-01-14] MEDS: ASCORBIC ACID 1,000 MG TAB PO SCH (10:00)
[2021-01-14] MEDS: CHOLECALCIFEROL (VITD3) 2,000 UNIT CAP/TAB PO SCH (10:00)
[2021-01-14] MEDS: DexAMETHasone SOD PHOS 10MG/1ML VIAL INJ IV SCH (12:33)
[2021-01-14] MEDS: CLOPIDOGREL BISULFATE 75 MG TAB PO SCH (12:34)
[2021-01-14] MEDS: ASPirin-EC 81 mg tab PO SCH (12:34)
[2021-01-14 13:00] VITALS: BP 139/66
[2021-01-14 17:00] VITALS: BP 140/67
[2021-01-14] MEDS: INSULIN LANTUS (GLARGINE) 1 /0.01ml (100units/ml) SC SCH (21:44)
[2021-01-14] MEDS: DONEPEZIL HYDROCHLORIDE 5 MG TAB PO SCH (21:48)
[2021-01-14] MEDS: ATORVASTATIN 20 MG TAB PO SCH (21:48)
[2021-01-14 22:00] VITALS: BP 146/50
[2021-01-15] VITALS (59 sets, daily range): BP systolic 85–165; BP diastolic 39–74
[2021-01-15] MEDS ORDERED: SUCCINYLCHOLINE CHLORIDE 20 MG/ML 10ML VIAL IV ONE (06:16)
[2021-01-15] MEDS ORDERED: ETOMIDATE (2MG/ML) 20ML VIAL IV ONE (06:16)
[2021-01-15] MEDS ORDERED: MIDAZOLAM DRIP 50 mg/50mL 50 ML IV ONE (06:51)
[2021-01-15] MEDS: InsuLIN REG 1unit/0.01ml Soln (100units/ml) SC SCH ×4 (07:00→22:25)
[2021-01-15] MEDS ORDERED: NOREPINEPHRINE 8 MG/250ML KIT 250 ML IV ONE (07:33)
[2021-01-15] MEDS: MIDAZOLAM DRIP 50 mg/50mL 50 ML IV SCH (08:00)
[2021-01-15] MEDS ORDERED: fentaNYL Drip 2500mCg/250mlNS 250 ML IV ONE (08:30)
[2021-01-15] MEDS: ACCU-CHEK COMFORT CURVE STRIP VI SCH ×4 (09:28→21:55)
[2021-01-15] MEDS: NOREPINEPHRINE 8 MG/250ML KIT 250 ML IV SCH (09:29)
[2021-01-15] MEDS: CHOLECALCIFEROL (VITD3) 2,000 UNIT CAP/TAB PO SCH (09:30)
[2021-01-15] MEDS: CLOPIDOGREL BISULFATE 75 MG TAB PO SCH (09:30)
[2021-01-15] MEDS: MEMANTINE HCL 5 MG TAB PO SCH ×2 (09:30→22:00)
[2021-01-15] MEDS: ASPirin-EC 81 mg tab PO SCH (09:30)
[2021-01-15] MEDS: FLORASTOR (S. BOULARDII) 250 MG CAP PO SCH ×2 (09:30→22:00)
[2021-01-15] MEDS: ASCORBIC ACID 1,000 MG TAB PO SCH (09:30)
[2021-01-15] MEDS: fentaNYL Drip 2500mCg/250mlNS 250 ML IV SCH (09:37)
[2021-01-15] MEDS: FAMOTIDINE (10MG/ML) 2ML VL IV SCH (21:55)
[2021-01-15] MEDS: BUMETANIDE 2.5mg/10ml (0.25 mg/ml) INJ IV SCH (21:55)
[2021-01-15] MEDS: DONEPEZIL HYDROCHLORIDE 5 MG TAB PO SCH (22:00)
[2021-01-15] MEDS: ATORVASTATIN 20 MG TAB PO SCH (22:00)
[2021-01-15] MEDS: INSULIN LANTUS (GLARGINE) 1 /0.01ml (100units/ml) SC SCH (22:26)
[2021-01-16] VITALS (99 sets, daily range): BP systolic 58–147; BP diastolic 21–67
[2021-01-16 04:49] LABS: Hemoglobin 10.3 g/dL (12.2-16.2)
[2021-01-16 04:52] LABS: Hematocrit 32.7 % (36.0-46.0); Mean Corpuscular Hemoglobin 28.8 pg (28.0-32.0); Mean Corpuscular Hgb Conc. 31.6 g/dL (32.0-36.0); Mean Corpuscular Volume 91.2 fL (80.0-100.0); Red Blood Cells 3.58 10^6/uL (4.0-5.20); Red Cell Distribution Width 14.4 % (11.8-14.3)
[2021-01-16 04:57] LABS: Basophils % (manual) 0 (0.0-2.0); Blast Cells 0; Eosinophils % (manual) 0 (0-7); Myelocytes % 0; Promyelocytes % 0; Reactive Lymphocytes 0; White Blood Cell 32.4 10^3/uL (4.4-10.8)
[2021-01-16 05:12] LABS: BUN/Creatinine Ratio 29.3; Calcium 8.3 mg/dL (8.5-10.1)
[2021-01-16] MEDS: fentaNYL Drip 2500mCg/250mlNS 250 ML IV SCH ×2 (05:24→16:50)
[2021-01-16 05:54] LABS: Potassium 5.9 mmol/L (3.5-5.1)
[2021-01-16] MEDS: BUMETANIDE 2.5mg/10ml (0.25 mg/ml) INJ IV SCH (06:02)
[2021-01-16] MEDS: ACCU-CHEK COMFORT CURVE STRIP VI SCH ×4 (06:15→22:07)
[2021-01-16] MEDS: InsuLIN REG 1unit/0.01ml Soln (100units/ml) SC SCH ×4 (06:15→22:09)
[2021-01-16] MEDS: MIDAZOLAM DRIP 50 mg/50mL 50 ML IV SCH ×2 (06:45→16:50)
[2021-01-16] MEDS ORDERED: BUMETANIDE 2.5mg/10ml (0.25 mg/ml) INJ IV ONE (08:15)
[2021-01-16] MEDS ORDERED: CALCIUM GLUC 1,000mg/50ml-NS 50 ML IV ONE (08:15)
[2021-01-16] MEDS ORDERED: SODIUM CHLORIDE 0.9% 500 ML IV ONE (08:15)
[2021-01-16] MEDS ORDERED: DEXTROSE (50%) 50ML SYRG IV ONE (08:15)
[2021-01-16] MEDS ORDERED: InsuLIN REG 1unit/0.01ml Soln (100units/ml) IV ONE (08:15)
[2021-01-16] MEDS: SODIUM CHLORIDE 0.9% 1,000 ML IV SCH ×2 (08:43→18:15)
[2021-01-16] MEDS: CHOLECALCIFEROL (VITD3) 2,000 UNIT CAP/TAB PO SCH (08:44)
[2021-01-16] MEDS: CLOPIDOGREL BISULFATE 75 MG TAB PO SCH (08:44)
[2021-01-16] MEDS: DexAMETHasone SOD PHOS 10MG/1ML VIAL INJ IV SCH (08:44)
[2021-01-16] MEDS: ASPirin-EC 81 mg tab PO SCH (08:44)
[2021-01-16] MEDS: ASCORBIC ACID 1,000 MG TAB PO SCH (08:44)
[2021-01-16] MEDS: FLORASTOR (S. BOULARDII) 250 MG CAP PO SCH ×2 (08:44→22:07)
[2021-01-16] MEDS: MEMANTINE HCL 5 MG TAB PO SCH (08:44)
[2021-01-16 09:03] LABS: Band Neutrophils % (manual) 4; Lymphocytes % (manual) 5 (10.0-50.0); Metamyelocytes % 1; Monocytes % (manual) 4 (0-12)
[2021-01-16] MEDS ORDERED: BUMETANIDE INJECTION 25 MG in GIVE UN-DILUTED 0 ML IV SCH (11:30)
[2021-01-16 12:21] LABS: BUN/Creatinine Ratio 26.3; Calcium 8.3 mg/dL (8.5-10.1)
[2021-01-16 12:43] LABS: Potassium 5.7 mmol/L (3.5-5.1)
[2021-01-16] MEDS ORDERED: SODIUM BICARBONATE 8.4 % INJ 50ML VIAL IV ONE ×2 (12:57→13:15)
[2021-01-16] MEDS ORDERED: HEPARIN 1,000 UNITS/ml 1ML VIAL IV ONE (13:15)
[2021-01-16] MEDS ORDERED: ALBUMIN 25% 200 ML IV ONE (15:28)
[2021-01-16] MEDS ORDERED: PHENYLEPHRINE IV 250 ML IV ONE (15:31)
[2021-01-16] MEDS: PHENYLEPHRINE IV 250 ML IV SCH (15:45)
[2021-01-16] MEDS ORDERED: ALBUMIN 25% 100 ML IV ONE (16:15)
[2021-01-16] MEDS ORDERED: HEPARIN SODIUM (PORCINE) 5000 UNITS/ML 1ML VIAL IV ONE (16:30)
[2021-01-16] MEDS: NOREPINEPHRINE 8 MG/250ML KIT 250 ML IV SCH (16:44)
[2021-01-16] MEDS: INSULIN LANTUS (GLARGINE) 1 /0.01ml (100units/ml) SC SCH (22:08)
[2021-01-17] VITALS (102 sets, daily range): BP systolic 95–167; BP diastolic 27–67
[2021-01-17] MEDS: PHENYLEPHRINE IV 250 ML IV SCH ×4 (00:05→23:50)
[2021-01-17 04:35] LABS: Potassium 4.2 mmol/L (3.5-5.1)
[2021-01-17 04:40] LABS: BUN/Creatinine Ratio 22.9; Calcium 7.6 mg/dL (8.5-10.1)
[2021-01-17] MEDS: SODIUM CHLORIDE 0.9% 1,000 ML IV SCH ×3 (05:14→23:50)
[2021-01-17] MEDS: fentaNYL Drip 2500mCg/250mlNS 250 ML IV SCH (05:17)
[2021-01-17] MEDS: ACCU-CHEK COMFORT CURVE STRIP VI SCH ×4 (06:23→21:23)
[2021-01-17] MEDS: InsuLIN REG 1unit/0.01ml Soln (100units/ml) SC SCH ×4 (06:24→21:22)
[2021-01-17] MEDS: MIDAZOLAM DRIP 50 mg/50mL 50 ML IV SCH ×4 (07:45→18:58)
[2021-01-17] MEDS: NOREPINEPHRINE 8 MG/250ML KIT 250 ML IV SCH (08:15)
[2021-01-17] MEDS: FLORASTOR (S. BOULARDII) 250 MG CAP PO SCH ×2 (10:05→21:22)
[2021-01-17] MEDS: CLOPIDOGREL BISULFATE 75 MG TAB PO SCH (10:05)
[2021-01-17] MEDS: CHOLECALCIFEROL (VITD3) 2,000 UNIT CAP/TAB PO SCH (10:05)
[2021-01-17] MEDS: DexAMETHasone SOD PHOS 10MG/1ML VIAL INJ IV SCH (10:05)
[2021-01-17] MEDS: ASCORBIC ACID 1,000 MG TAB PO SCH (10:05)
[2021-01-17] MEDS: ASPirin-EC 81 mg tab PO SCH (10:05)
[2021-01-17 10:57] LABS: Hemoglobin 7.4 g/dL (12.2-16.2)
[2021-01-17 10:59] LABS: Hematocrit 22.2 % (36.0-46.0); Mean Corpuscular Hemoglobin 29.3 pg (28.0-32.0); Mean Corpuscular Hgb Conc. 33.2 g/dL (32.0-36.0); Mean Corpuscular Volume 88.3 fL (80.0-100.0); Red Blood Cells 2.51 10^6/uL (4.0-5.20); White Blood Cell 16.2 10^3/uL (4.4-10.8)
[2021-01-17 11:52] LABS: Basophils % (manual) 0 (0.0-2.0); Blast Cells 0; Eosinophils % (manual) 0 (0-7); Metamyelocytes % 0; Myelocytes % 0; Promyelocytes % 0; Reactive Lymphocytes 0
[2021-01-17] MEDS ORDERED: Nepro With Carb Steady 1 Liter Bottle GT SCH (13:15)
[2021-01-17 13:43] LABS: Band Neutrophils % (manual) 6; Lymphocytes % (manual) 3 (10.0-50.0); Monocytes % (manual) 3 (0-12)
[2021-01-17 19:04] LABS: INR 1.1 (0.9-1.15); Partial Thromboplastin Time 33.2 sec (23.6-33.0)
[2021-01-17] MEDS: FAMOTIDINE (10MG/ML) 2ML VL IV SCH (21:21)
[2021-01-17] MEDS: INSULIN LANTUS (GLARGINE) 1 /0.01ml (100units/ml) SC SCH (21:23)
[2021-01-18] VITALS (102 sets, daily range): BP systolic 91–163; BP diastolic 29–68
[2021-01-18] MEDS: ACCU-CHEK COMFORT CURVE STRIP VI SCH ×4 (06:12→21:45)
[2021-01-18] MEDS: InsuLIN REG 1unit/0.01ml Soln (100units/ml) SC SCH ×4 (06:12→21:44)
[2021-01-18] MEDS: fentaNYL Drip 2500mCg/250mlNS 250 ML IV SCH ×2 (06:28→17:15)
[2021-01-18] MEDS: MIDAZOLAM DRIP 50 mg/50mL 50 ML IV SCH ×3 (06:29→18:33)
[2021-01-18] MEDS ORDERED: SODIUM CHL 0.9% 1000 ML BAG XX ONE (07:00)
[2021-01-18 08:33] LABS: Hemoglobin 7.5 g/dL (12.2-16.2); Mean Corpuscular Volume 90.4 fL (80.0-100.0)
[2021-01-18 08:38] LABS: Hematocrit 22.9 % (36.0-46.0); Mean Corpuscular Hemoglobin 29.6 pg (28.0-32.0); Mean Corpuscular Hgb Conc. 32.7 g/dL (32.0-36.0); Red Blood Cells 2.54 10^6/uL (4.0-5.20); Red Cell Distribution Width 14.2 % (11.8-14.3); White Blood Cell 14.8 10^3/uL (4.4-10.8)
[2021-01-18 08:45] LABS: Basophils % (manual) 0 (0.0-2.0); Blast Cells 0; Eosinophils % (manual) 0 (0-7); Metamyelocytes % 0; Myelocytes % 0; Promyelocytes % 0; Reactive Lymphocytes 0
[2021-01-18] MEDS: cefTRIAXone 1GM/50ML D5W 50 ML IV SCH (08:50)
[2021-01-18 08:55] LABS: Albumin 1.4 g/dL (3.4-5.0); Calcium 7.9 mg/dL (8.5-10.1); Potassium 4.3 mmol/L (3.5-5.1)
[2021-01-18 08:58] LABS: BUN/Creatinine Ratio 22.1
[2021-01-18 09:01] LABS: Bilirubin, Total 0.2 mg/dL (0.2-1.0)
[2021-01-18] MEDS: NOREPINEPHRINE 8 MG/250ML KIT 250 ML IV SCH ×2 (09:15→18:25)
[2021-01-18] MEDS: PHENYLEPHRINE IV 250 ML IV SCH ×3 (09:25→20:24)
[2021-01-18 10:35] LABS: Band Neutrophils % (manual) 7; Lymphocytes % (manual) 3 (10.0-50.0); Monocytes % (manual) 2 (0-12)
[2021-01-18] MEDS: DexAMETHasone SOD PHOS 10MG/1ML VIAL INJ IV SCH (11:20)
[2021-01-18] MEDS: FLORASTOR (S. BOULARDII) 250 MG CAP PO SCH ×2 (11:20→20:26)
[2021-01-18] MEDS: ASPirin-EC 81 mg tab PO SCH (11:20)
[2021-01-18] MEDS: SODIUM CHLORIDE 0.9% 1,000 ML IV SCH ×2 (11:21→20:24)
[2021-01-18] MEDS: CHOLECALCIFEROL (VITD3) 2,000 UNIT CAP/TAB PO SCH (11:21)
[2021-01-18] MEDS: CLOPIDOGREL BISULFATE 75 MG TAB PO SCH (11:21)
[2021-01-18] MEDS: ASCORBIC ACID 1,000 MG TAB PO SCH (11:21)
[2021-01-18] MEDS ORDERED: EPOETIN ALFA-EPBX 4,000 UNIT/ML VIAL SC ONE (21:00)
[2021-01-18] MEDS: INSULIN LANTUS (GLARGINE) 1 /0.01ml (100units/ml) SC SCH (21:45)
[2021-01-19] VITALS (104 sets, daily range): BP systolic 90–183; BP diastolic 32–80
[2021-01-19] MEDS: SODIUM CHLORIDE 0.9% 1,000 ML IV SCH (04:43)
[2021-01-19] MEDS: InsuLIN REG 1unit/0.01ml Soln (100units/ml) SC SCH ×4 (05:58→21:55)
[2021-01-19] MEDS: ACCU-CHEK COMFORT CURVE STRIP VI SCH ×4 (05:58→21:55)
[2021-01-19] MEDS: MIDAZOLAM DRIP 50 mg/50mL 50 ML IV SCH ×3 (06:28→21:57)
[2021-01-19] MEDS: fentaNYL Drip 2500mCg/250mlNS 250 ML IV SCH ×2 (06:29→21:56)
[2021-01-19] MEDS: ASCORBIC ACID 1,000 MG TAB PO SCH (09:41)
[2021-01-19] MEDS: FLORASTOR (S. BOULARDII) 250 MG CAP PO SCH ×2 (09:41→21:53)
[2021-01-19] MEDS: DexAMETHasone SOD PHOS 10MG/1ML VIAL INJ IV SCH (09:41)
[2021-01-19] MEDS: CLOPIDOGREL BISULFATE 75 MG TAB PO SCH (09:41)
[2021-01-19] MEDS: cefTRIAXone 1GM/50ML D5W 50 ML IV SCH (09:41)
[2021-01-19] MEDS: ASPirin-EC 81 mg tab PO SCH (09:41)
[2021-01-19] MEDS: CHOLECALCIFEROL (VITD3) 2,000 UNIT CAP/TAB PO SCH (09:42)
[2021-01-19 10:00] LABS: Eosinophils # (auto) 0 10 ^3/uL (0-0.8); Lymphocytes # (auto) 0.6 10 ^3/uL (0.4-5.4); Nucleated Red Blood Cells % 0.1 %; Red Blood Cells 2.55 10^6/uL (4.0-5.20)
[2021-01-19 10:01] LABS: Basophils # (auto) 0.1 10 ^3/uL (0-0.2); Basophils % (auto) 0.4 % (0.0-2.0); Hematocrit 22.8 % (36.0-46.0); Hemoglobin 7.4 g/dL (12.2-16.2); Lymphocytes % (auto) 3.6 % (10.0-50.0); Mean Corpuscular Hgb Conc. 32.5 g/dL (32.0-36.0); Mean Corpuscular Volume 89.3 fL (80.0-100.0); Monocytes # (auto) 0.8 10 ^3/uL (0-1.3); Neutrophils # (auto) 14.6 10 ^3/uL (1.6-8.6); Red Cell Distribution Width 14.1 % (11.8-14.3); White Blood Cell 16.1 10^3/uL (4.4-10.8)
[2021-01-19] MEDS: PHENYLEPHRINE IV 250 ML IV SCH ×3 (10:25→21:55)
[2021-01-19 10:30] LABS: Albumin 1.4 g/dL (3.4-5.0); Calcium 7.6 mg/dL (8.5-10.1); Potassium 3.8 mmol/L (3.5-5.1)
[2021-01-19 10:34] LABS: BUN/Creatinine Ratio 17.8; Bilirubin, Total 0.2 mg/dL (0.2-1.0); Total Protein 5.1 g/dL (6.4-8.2)
[2021-01-19] MEDS: METOCLOPRAMIDE HCL 5MG/ml INJ 2ml VIAL IV SCH ×2 (13:23→21:52)
[2021-01-19] MEDS: FAMOTIDINE (10MG/ML) 2ML VL IV SCH (21:52)
[2021-01-19] MEDS: SODIUM CHLOR 0.9% PF (SALINE LOCK) 10ML VIAL/SYR IV SCH (21:53)
[2021-01-19] MEDS: INSULIN LANTUS (GLARGINE) 1 /0.01ml (100units/ml) SC SCH (21:55)
[2021-01-20] VITALS (100 sets, daily range): BP systolic 83–182; BP diastolic 33–61
[2021-01-20] MEDS: MIDAZOLAM DRIP 50 mg/50mL 50 ML IV SCH ×2 (01:05→21:17)
[2021-01-20 04:58] LABS: Mean Corpuscular Volume 88.7 fL (80.0-100.0); Red Cell Distribution Width 13.9 % (11.8-14.3)
[2021-01-20 05:01] LABS: Hemoglobin 7.1 g/dL (12.2-16.2); Mean Corpuscular Hgb Conc. 33.9 g/dL (32.0-36.0); Red Blood Cells 2.37 10^6/uL (4.0-5.20); White Blood Cell 13.7 10^3/uL (4.4-10.8)
[2021-01-20 05:13] LABS: Albumin 1.4 g/dL (3.4-5.0); Calcium 7.7 mg/dL (8.5-10.1); Magnesium 2.3 mg/dL (1.6-2.6); Potassium 3.9 mmol/L (3.5-5.1)
[2021-01-20 05:16] LABS: BUN/Creatinine Ratio 19.5; Bilirubin, Total 0.2 mg/dL (0.2-1.0)
[2021-01-20 05:34] LABS: Basophils % (manual) 0 (0.0-2.0); Blast Cells 0; Promyelocytes % 0; Reactive Lymphocytes 0
[2021-01-20] MEDS: InsuLIN REG 1unit/0.01ml Soln (100units/ml) SC SCH ×4 (06:23→21:16)
[2021-01-20] MEDS: METOCLOPRAMIDE HCL 5MG/ml INJ 2ml VIAL IV SCH ×3 (06:23→21:16)
[2021-01-20] MEDS: ACCU-CHEK COMFORT CURVE STRIP VI SCH ×4 (06:24→21:16)
[2021-01-20] MEDS ORDERED: SODIUM CHL 0.9% 1000 ML BAG XX ONE (07:00)
[2021-01-20] MEDS: ASPirin-EC 81 mg tab PO SCH (07:55)
[2021-01-20] MEDS: CHOLECALCIFEROL (VITD3) 2,000 UNIT CAP/TAB PO SCH (07:56)
[2021-01-20] MEDS: ASCORBIC ACID 1,000 MG TAB PO SCH (07:56)
[2021-01-20] MEDS: FLORASTOR (S. BOULARDII) 250 MG CAP PO SCH ×2 (07:56→21:16)
[2021-01-20] MEDS: CLOPIDOGREL BISULFATE 75 MG TAB PO SCH (07:56)
[2021-01-20 08:24] LABS: Band Neutrophils % (manual) 7; Eosinophils % (manual) 1 (0-7); Lymphocytes % (manual) 12 (10.0-50.0); Monocytes % (manual) 6 (0-12)
[2021-01-20 08:25] LABS: Metamyelocytes % 2; Myelocytes % 1
[2021-01-20] MEDS: cefTRIAXone 1GM/50ML D5W 50 ML IV SCH (09:31)
[2021-01-20] MEDS: NOREPINEPHRINE 8 MG/250ML KIT 250 ML IV SCH (09:32)
[2021-01-20] MEDS: SODIUM CHLOR 0.9% PF (SALINE LOCK) 10ML VIAL/SYR IV SCH ×2 (09:58→20:05)
[2021-01-20] MEDS: DexAMETHasone SOD PHOS 10MG/1ML VIAL INJ IV SCH (09:58)
[2021-01-20] MEDS: PHENYLEPHRINE IV 250 ML IV SCH ×2 (11:25→19:45)
[2021-01-20] MEDS ORDERED: EPOETIN ALFA-EPBX 10,000 UNIT/1ML VIAL SC ONE (21:00)
[2021-01-20] MEDS: INSULIN LANTUS (GLARGINE) 1 /0.01ml (100units/ml) SC SCH (21:16)
[2021-01-21] VITALS (100 sets, daily range): BP systolic 78–150; BP diastolic 32–53
[2021-01-21] MEDS: PHENYLEPHRINE IV 250 ML IV SCH ×3 (01:04→20:45)
[2021-01-21] MEDS: METOCLOPRAMIDE HCL 5MG/ml INJ 2ml VIAL IV SCH ×3 (06:03→21:55)
[2021-01-21] MEDS: ACCU-CHEK COMFORT CURVE STRIP VI SCH ×4 (06:03→21:56)
[2021-01-21] MEDS: InsuLIN REG 1unit/0.01ml Soln (100units/ml) SC SCH ×4 (06:03→22:40)
[2021-01-21] MEDS: fentaNYL Drip 2500mCg/250mlNS 250 ML IV SCH ×3 (06:05→16:12)
[2021-01-21 09:07] LABS: Mean Corpuscular Hgb Conc. 33.5 g/dL (32.0-36.0); White Blood Cell 12.1 10^3/uL (4.4-10.8)
[2021-01-21 09:08] LABS: Hematocrit 18.3 % (36.0-46.0); Mean Corpuscular Hemoglobin 29.4 pg (28.0-32.0); Red Blood Cells 2.08 10^6/uL (4.0-5.20); Red Cell Distribution Width 13.9 % (11.8-14.3)
[2021-01-21 09:10] LABS: Hemoglobin 6.1 g/dL (12.2-16.2)
[2021-01-21 09:11] LABS: Basophils % (manual) 0 (0.0-2.0); Blast Cells 0; Eosinophils % (manual) 0 (0-7); Metamyelocytes % 0; Monocytes % (manual) 0 (0-12); Promyelocytes % 0; Reactive Lymphocytes 0
[2021-01-21] MEDS: NOREPINEPHRINE 8 MG/250ML KIT 250 ML IV SCH (09:15)
[2021-01-21 09:24] LABS: BUN/Creatinine Ratio 19.8; Calcium 7.8 mg/dL (8.5-10.1)
[2021-01-21 09:37] LABS: Band Neutrophils % (manual) 3; Lymphocytes % (manual) 17 (10.0-50.0); Myelocytes % 1
[2021-01-21] MEDS: ASPirin-EC 81 mg tab PO SCH (10:00)
[2021-01-21] MEDS: DexAMETHasone SOD PHOS 10MG/1ML VIAL INJ IV SCH (10:01)
[2021-01-21] MEDS: cefTRIAXone 1GM/50ML D5W 50 ML IV SCH (10:01)
[2021-01-21] MEDS: CHOLECALCIFEROL (VITD3) 2,000 UNIT CAP/TAB PO SCH (10:02)
[2021-01-21] MEDS: FLORASTOR (S. BOULARDII) 250 MG CAP PO SCH ×2 (10:02→21:55)
[2021-01-21] MEDS: CLOPIDOGREL BISULFATE 75 MG TAB PO SCH (10:02)
[2021-01-21] MEDS: ASCORBIC ACID 1,000 MG TAB PO SCH (10:02)
[2021-01-21] MEDS: SODIUM CHLOR 0.9% PF (SALINE LOCK) 10ML VIAL/SYR IV SCH ×2 (10:02→21:55)
[2021-01-21] MEDS: MIDAZOLAM DRIP 50 mg/50mL 50 ML IV SCH ×2 (10:03→16:12)
[2021-01-21] MEDS ORDERED: ROCURONIUM 10MG/ML 10ML VIAL IV ONE ×2 (10:54→11:00)
[2021-01-21 15:37] LABS: Hematocrit 19.4 % (36.0-46.0)
[2021-01-21 15:58] LABS: Hemoglobin 6.4 g/dL (12.2-16.2)
[2021-01-21] MEDS: FUROSEMIDE 40 MG/4 ML VIAL IV SCH (18:43)
[2021-01-21] MEDS: FAMOTIDINE (10MG/ML) 2ML VL IV SCH (21:55)
[2021-01-21] MEDS: INSULIN LANTUS (GLARGINE) 1 /0.01ml (100units/ml) SC SCH (22:39)
[2021-01-22] VITALS (105 sets, daily range): BP systolic 85–173; BP diastolic 34–69
[2021-01-22 04:47] LABS: Red Blood Cells 1.99 10^6/uL (4.0-5.20); White Blood Cell 13.3 10^3/uL (4.4-10.8)
[2021-01-22 04:56] LABS: Hematocrit 17.6 % (36.0-46.0); Mean Corpuscular Hgb Conc. 33.9 g/dL (32.0-36.0); Mean Corpuscular Volume 88.4 fL (80.0-100.0); Red Cell Distribution Width 13.7 % (11.8-14.3)
[2021-01-22] MEDS: PHENYLEPHRINE IV 250 ML IV SCH ×4 (05:02→21:06)
[2021-01-22 05:03] LABS: Basophils % (manual) 0 (0.0-2.0); Blast Cells 0; Eosinophils % (manual) 0 (0-7); Metamyelocytes % 0; Myelocytes % 0; Promyelocytes % 0; Reactive Lymphocytes 0
[2021-01-22] MEDS: FUROSEMIDE 40 MG/4 ML VIAL IV SCH ×2 (05:03→17:46)
[2021-01-22] MEDS: METOCLOPRAMIDE HCL 5MG/ml INJ 2ml VIAL IV SCH ×3 (05:04→20:52)
[2021-01-22] MEDS: ACCU-CHEK COMFORT CURVE STRIP VI SCH ×4 (05:04→21:06)
[2021-01-22 05:10] LABS: Calcium 7.7 mg/dL (8.5-10.1); Potassium 4.4 mmol/L (3.5-5.1)
[2021-01-22] MEDS: InsuLIN REG 1unit/0.01ml Soln (100units/ml) SC SCH ×4 (06:16→21:03)
[2021-01-22] MEDS ORDERED: SODIUM CHL 0.9% 1000 ML BAG XX ONE (07:00)
[2021-01-22 07:23] LABS: Band Neutrophils % (manual) 20; Lymphocytes % (manual) 2 (10.0-50.0); Monocytes % (manual) 6 (0-12)
[2021-01-22] MEDS: cefTRIAXone 1GM/50ML D5W 50 ML IV SCH (09:07)
[2021-01-22] MEDS: NOREPINEPHRINE 8 MG/250ML KIT 250 ML IV SCH (09:15)
[2021-01-22] MEDS: FLORASTOR (S. BOULARDII) 250 MG CAP PO SCH ×2 (09:31→20:52)
[2021-01-22] MEDS: ASPirin-EC 81 mg tab PO SCH (09:31)
[2021-01-22] MEDS: SODIUM CHLOR 0.9% PF (SALINE LOCK) 10ML VIAL/SYR IV SCH ×2 (09:31→20:52)
[2021-01-22] MEDS: DexAMETHasone SOD PHOS 10MG/1ML VIAL INJ IV SCH (09:31)
[2021-01-22] MEDS: CLOPIDOGREL BISULFATE 75 MG TAB PO SCH (09:31)
[2021-01-22] MEDS: MIDAZOLAM DRIP 50 mg/50mL 50 ML IV SCH ×2 (09:32→14:43)
[2021-01-22] MEDS: ASCORBIC ACID 1,000 MG TAB PO SCH (09:32)
[2021-01-22] MEDS: CHOLECALCIFEROL (VITD3) 2,000 UNIT CAP/TAB PO SCH (09:32)
[2021-01-22] MEDS: fentaNYL Drip 2500mCg/250mlNS 250 ML IV SCH (12:19)
[2021-01-22 20:46] LABS: Hematocrit 26.6 % (36.0-46.0)
[2021-01-22] MEDS ORDERED: EPOETIN ALFA-EPBX 10,000 UNIT/1ML VIAL SC ONE (21:00)
[2021-01-22] MEDS: INSULIN LANTUS (GLARGINE) 1 /0.01ml (100units/ml) SC SCH (21:04)
[2021-01-23] VITALS (101 sets, daily range): BP systolic 100–153; BP diastolic 35–54
[2021-01-23 04:46] LABS: Mean Corpuscular Hemoglobin 30.1 pg (28.0-32.0); Mean Corpuscular Hgb Conc. 33.4 g/dL (32.0-36.0); Mean Corpuscular Volume 89.9 fL (80.0-100.0); White Blood Cell 12.3 10^3/uL (4.4-10.8)
[2021-01-23 04:58] LABS: Basophils % (manual) 0 (0.0-2.0); Blast Cells 0; Eosinophils % (manual) 0 (0-7); Metamyelocytes % 0; Myelocytes % 0; Promyelocytes % 0; Reactive Lymphocytes 0
[2021-01-23 05:01] LABS: BUN/Creatinine Ratio 19.5; Calcium 7.7 mg/dL (8.5-10.1); Potassium 3.6 mmol/L (3.5-5.1)
[2021-01-23] MEDS: FUROSEMIDE 40 MG/4 ML VIAL IV SCH (05:02)
[2021-01-23] MEDS: ACCU-CHEK COMFORT CURVE STRIP VI SCH ×4 (05:03→22:00)
[2021-01-23] MEDS: METOCLOPRAMIDE HCL 5MG/ml INJ 2ml VIAL IV SCH ×3 (05:03→22:32)
[2021-01-23] MEDS: InsuLIN REG 1unit/0.01ml Soln (100units/ml) SC SCH ×4 (05:43→22:00)
[2021-01-23 07:09] LABS: Band Neutrophils % (manual) 36; Lymphocytes % (manual) 6 (10.0-50.0); Monocytes % (manual) 2 (0-12)
[2021-01-23] MEDS: DexAMETHasone SOD PHOS 10MG/1ML VIAL INJ IV SCH (10:08)
[2021-01-23] MEDS: SODIUM CHLOR 0.9% PF (SALINE LOCK) 10ML VIAL/SYR IV SCH ×2 (10:08→22:32)
[2021-01-23] MEDS: CHOLECALCIFEROL (VITD3) 2,000 UNIT CAP/TAB PO SCH (10:08)
[2021-01-23] MEDS: CLOPIDOGREL BISULFATE 75 MG TAB PO SCH (10:09)
[2021-01-23] MEDS: ASCORBIC ACID 1,000 MG TAB PO SCH (10:09)
[2021-01-23] MEDS: ASPirin-EC 81 mg tab PO SCH (10:09)
[2021-01-23] MEDS: FLORASTOR (S. BOULARDII) 250 MG CAP PO SCH ×2 (10:09→22:32)
[2021-01-23] MEDS: cefTRIAXone 1GM/50ML D5W 50 ML IV SCH (10:09)
[2021-01-23] MEDS: PHENYLEPHRINE IV 250 ML IV SCH ×2 (14:25→22:45)
[2021-01-23] MEDS: NOREPINEPHRINE 8 MG/250ML KIT 250 ML IV SCH (18:39)
[2021-01-23] MEDS: INSULIN LANTUS (GLARGINE) 1 /0.01ml (100units/ml) SC SCH (22:00)
[2021-01-23] MEDS: FAMOTIDINE (10MG/ML) 2ML VL IV SCH (22:31)
[2021-01-23] MEDS: MIDAZOLAM DRIP 50 mg/50mL 50 ML IV SCH (22:31)
[2021-01-24] VITALS (99 sets, daily range): BP systolic 84–157; BP diastolic 28–57
[2021-01-24 03:50] LABS: Hematocrit 27.2 % (36.0-46.0); Hemoglobin 9.1 g/dL (12.2-16.2); Mean Corpuscular Hemoglobin 29.6 pg (28.0-32.0); Mean Corpuscular Hgb Conc. 33.4 g/dL (32.0-36.0); Mean Corpuscular Volume 88.6 fL (80.0-100.0); Red Blood Cells 3.07 10^6/uL (4.0-5.20); Red Cell Distribution Width 15.2 % (11.8-14.3); White Blood Cell 11.5 10^3/uL (4.4-10.8)
[2021-01-24 04:05] LABS: Basophils % (manual) 0 (0.0-2.0); Blast Cells 0; Metamyelocytes % 0; Promyelocytes % 0; Reactive Lymphocytes 0
[2021-01-24 04:07] LABS: Potassium 3.6 mmol/L (3.5-5.1)
[2021-01-24 04:11] LABS: BUN/Creatinine Ratio 19.2; Calcium 7.9 mg/dL (8.5-10.1)
[2021-01-24 04:33] LABS: Band Neutrophils % (manual) 15; Eosinophils % (manual) 1 (0-7); Lymphocytes % (manual) 4 (10.0-50.0); Monocytes % (manual) 3 (0-12); Myelocytes % 2
[2021-01-24] MEDS: METOCLOPRAMIDE HCL 5MG/ml INJ 2ml VIAL IV SCH ×3 (06:03→22:30)
[2021-01-24] MEDS: ACCU-CHEK COMFORT CURVE STRIP VI SCH ×4 (06:04→22:33)
[2021-01-24] MEDS: InsuLIN REG 1unit/0.01ml Soln (100units/ml) SC SCH ×4 (06:04→22:32)
[2021-01-24] MEDS ORDERED: SODIUM CHL 0.9% 1000 ML BAG XX ONE (07:00)
[2021-01-24] MEDS: PHENYLEPHRINE IV 250 ML IV SCH ×3 (08:56→23:45)
[2021-01-24] MEDS: cefTRIAXone 1GM/50ML D5W 50 ML IV SCH (09:14)
[2021-01-24] MEDS: ASPirin-EC 81 mg tab PO SCH (09:28)
[2021-01-24] MEDS: CLOPIDOGREL BISULFATE 75 MG TAB PO SCH (09:29)
[2021-01-24] MEDS: SODIUM CHLOR 0.9% PF (SALINE LOCK) 10ML VIAL/SYR IV SCH ×2 (09:29→22:30)
[2021-01-24] MEDS: ASCORBIC ACID 1,000 MG TAB PO SCH (09:29)
[2021-01-24] MEDS: CHOLECALCIFEROL (VITD3) 2,000 UNIT CAP/TAB PO SCH (09:29)
[2021-01-24] MEDS: DexAMETHasone SOD PHOS 10MG/1ML VIAL INJ IV SCH (09:29)
[2021-01-24] MEDS: FLORASTOR (S. BOULARDII) 250 MG CAP PO SCH ×2 (09:29→22:30)
[2021-01-24] MEDS: fentaNYL Drip 2500mCg/250mlNS 250 ML IV SCH (12:00)
[2021-01-24] MEDS ORDERED: PROPOFOL 100 ML IV ONE (12:24)
[2021-01-24] MEDS: PROPOFOL 100 ML IV SCH (13:30)
[2021-01-24] MEDS: NOREPINEPHRINE 8 MG/250ML KIT 250 ML IV SCH (18:44)
[2021-01-24] MEDS ORDERED: ROCURONIUM 10MG/ML 10ML VIAL IV ONE ×2 (18:56→19:00)
[2021-01-24] MEDS ORDERED: EPOETIN ALFA-EPBX 4,000 UNIT/ML VIAL SC ONE (21:00)
[2021-01-24] MEDS: ROCURONIUM BROMIDE 1,000 MG in D5W 5% 150 ML IV SCH (21:14)
[2021-01-24] MEDS: INSULIN LANTUS (GLARGINE) 1 /0.01ml (100units/ml) SC SCH (22:00)
[2021-01-24] MEDS: MIDAZOLAM DRIP 50 mg/50mL 50 ML IV SCH (22:28)
[2021-01-25] VITALS (95 sets, daily range): BP systolic 4–167; BP diastolic 34–59
[2021-01-25 04:07] LABS: Hematocrit 31.1 % (36.0-46.0); Hemoglobin 10.1 g/dL (12.2-16.2); Mean Corpuscular Hgb Conc. 32.6 g/dL (32.0-36.0); Mean Corpuscular Volume 91.8 fL (80.0-100.0); Red Blood Cells 3.39 10^6/uL (4.0-5.20); Red Cell Distribution Width 15.3 % (11.8-14.3)
[2021-01-25 04:25] LABS: Calcium 7.6 mg/dL (8.5-10.1); Magnesium 2.1 mg/dL (1.6-2.6); Potassium 4.3 mmol/L (3.5-5.1)
[2021-01-25 04:26] LABS: BUN/Creatinine Ratio 15.5
[2021-01-25 05:14] LABS: Basophils % (manual) 0 (0.0-2.0); Blast Cells 0; Metamyelocytes % 0; Promyelocytes % 0; Reactive Lymphocytes 0
[2021-01-25] MEDS: METOCLOPRAMIDE HCL 5MG/ml INJ 2ml VIAL IV SCH ×3 (06:18→21:52)
[2021-01-25] MEDS: InsuLIN REG 1unit/0.01ml Soln (100units/ml) SC SCH ×4 (06:20→21:53)
[2021-01-25] MEDS: ACCU-CHEK COMFORT CURVE STRIP VI SCH ×4 (06:21→22:00)
[2021-01-25 06:24] LABS: Band Neutrophils % (manual) 34; Eosinophils % (manual) 1 (0-7); Lymphocytes % (manual) 2 (10.0-50.0); Monocytes % (manual) 1 (0-12); Myelocytes % 1
[2021-01-25] MEDS: PHENYLEPHRINE IV 250 ML IV SCH ×3 (08:58→22:51)
[2021-01-25] MEDS: CLOPIDOGREL BISULFATE 75 MG TAB PO SCH (10:43)
[2021-01-25] MEDS: FLORASTOR (S. BOULARDII) 250 MG CAP PO SCH ×2 (10:43→21:53)
[2021-01-25] MEDS: ASCORBIC ACID 1,000 MG TAB PO SCH (10:43)
[2021-01-25] MEDS: ASPirin-EC 81 mg tab PO SCH (10:43)
[2021-01-25] MEDS: CHOLECALCIFEROL (VITD3) 2,000 UNIT CAP/TAB PO SCH (10:43)
[2021-01-25] MEDS: SODIUM CHLOR 0.9% PF (SALINE LOCK) 10ML VIAL/SYR IV SCH ×2 (10:43→21:52)
[2021-01-25] MEDS: DexAMETHasone SOD PHOS 10MG/1ML VIAL INJ IV SCH (10:43)
[2021-01-25] MEDS: cefTRIAXone 1GM/50ML D5W 50 ML IV SCH (10:44)
[2021-01-25] MEDS: fentaNYL Drip 2500mCg/250mlNS 250 ML IV SCH (11:36)
[2021-01-25] MEDS: NOREPINEPHRINE 8 MG/250ML KIT 250 ML IV SCH (15:23)
[2021-01-25] MEDS: PROPOFOL 100 ML IV SCH (18:44)
[2021-01-25] MEDS: ROCURONIUM BROMIDE 1,000 MG in D5W 5% 150 ML IV SCH (19:24)
[2021-01-25] MEDS: MIDAZOLAM DRIP 50 mg/50mL 50 ML IV SCH (19:45)
[2021-01-25] MEDS: FAMOTIDINE (10MG/ML) 2ML VL IV SCH (21:52)
[2021-01-25] MEDS: INSULIN LANTUS (GLARGINE) 1 /0.01ml (100units/ml) SC SCH (22:01)
[2021-01-26] VITALS (101 sets, daily range): BP systolic 83–147; BP diastolic 37–76
[2021-01-26] MEDS: ACCU-CHEK COMFORT CURVE STRIP VI SCH ×4 (05:34→21:56)
[2021-01-26] MEDS: METOCLOPRAMIDE HCL 5MG/ml INJ 2ml VIAL IV SCH ×3 (05:34→21:55)
[2021-01-26] MEDS: InsuLIN REG 1unit/0.01ml Soln (100units/ml) SC SCH ×4 (06:22→22:00)
[2021-01-26] MEDS: PHENYLEPHRINE IV 250 ML IV SCH ×3 (09:05→21:58)
[2021-01-26] MEDS: NOREPINEPHRINE 8 MG/250ML KIT 250 ML IV SCH ×2 (09:15→15:44)
[2021-01-26] MEDS: cefTRIAXone 1GM/50ML D5W 50 ML IV SCH (09:21)
[2021-01-26] MEDS: CHOLECALCIFEROL (VITD3) 2,000 UNIT CAP/TAB PO SCH (09:22)
[2021-01-26] MEDS: CLOPIDOGREL BISULFATE 75 MG TAB PO SCH (09:22)
[2021-01-26] MEDS: FLORASTOR (S. BOULARDII) 250 MG CAP PO SCH ×2 (09:22→21:55)
[2021-01-26] MEDS: ASCORBIC ACID 1,000 MG TAB PO SCH (09:22)
[2021-01-26] MEDS: SODIUM CHLOR 0.9% PF (SALINE LOCK) 10ML VIAL/SYR IV SCH ×2 (09:22→21:55)
[2021-01-26] MEDS: DexAMETHasone SOD PHOS 10MG/1ML VIAL INJ IV SCH (09:22)
[2021-01-26] MEDS: ASPirin-EC 81 mg tab PO SCH (09:22)
[2021-01-26] MEDS: PROPOFOL 100 ML IV SCH ×2 (09:23→13:08)
[2021-01-26] MEDS: MIDAZOLAM DRIP 50 mg/50mL 50 ML IV SCH ×2 (09:23→13:08)
[2021-01-26] MEDS: fentaNYL Drip 2500mCg/250mlNS 250 ML IV SCH ×2 (09:24→18:21)
[2021-01-26] MEDS ORDERED: PIPERACILLIN-TAZOB 2.25GM 50 ML IV ONE (15:48)
[2021-01-26] MEDS: PIPERACILLIN-TAZOB 2.25GM 50 ML IV SCH ×2 (15:56→22:08)
[2021-01-26] MEDS: ROCURONIUM BROMIDE 1,000 MG in D5W 5% 150 ML IV SCH (19:30)
[2021-01-26] MEDS: INSULIN LANTUS (GLARGINE) 1 /0.01ml (100units/ml) SC SCH (22:00)
[2021-01-27] VITALS (101 sets, daily range): BP systolic 74–162; BP diastolic 37–68
[2021-01-27 04:35] LABS: Hematocrit 26.6 % (36.0-46.0); Mean Corpuscular Hemoglobin 30.4 pg (28.0-32.0); Mean Corpuscular Hgb Conc. 33.8 g/dL (32.0-36.0); Red Blood Cells 2.96 10^6/uL (4.0-5.20); Red Cell Distribution Width 16.3 % (11.8-14.3); White Blood Cell 18.4 10^3/uL (4.4-10.8)
[2021-01-27 04:39] LABS: Basophils % (manual) 0 (0.0-2.0); Blast Cells 0; Metamyelocytes % 0; Myelocytes % 0; Promyelocytes % 0; Reactive Lymphocytes 0
[2021-01-27 04:50] LABS: BUN/Creatinine Ratio 17.3; Calcium 7.2 mg/dL (8.5-10.1); Magnesium 2.1 mg/dL (1.6-2.6); Potassium 4.4 mmol/L (3.5-5.1)
[2021-01-27] MEDS: METOCLOPRAMIDE HCL 5MG/ml INJ 2ml VIAL IV SCH ×3 (06:21→21:12)
[2021-01-27] MEDS: InsuLIN REG 1unit/0.01ml Soln (100units/ml) SC SCH ×4 (06:21→21:14)
[2021-01-27] MEDS: ACCU-CHEK COMFORT CURVE STRIP VI SCH ×4 (06:21→21:13)
[2021-01-27] MEDS: PIPERACILLIN-TAZOB 2.25GM 50 ML IV SCH ×3 (06:37→22:48)
[2021-01-27 07:14] LABS: Band Neutrophils % (manual) 33; Eosinophils % (manual) 3 (0-7); Lymphocytes % (manual) 3 (10.0-50.0); Monocytes % (manual) 3 (0-12)
[2021-01-27] MEDS: ASPirin-EC 81 mg tab PO SCH (09:36)
[2021-01-27] MEDS: MIDAZOLAM DRIP 50 mg/50mL 50 ML IV SCH ×2 (09:36→17:31)
[2021-01-27] MEDS: CHOLECALCIFEROL (VITD3) 2,000 UNIT CAP/TAB PO SCH (09:37)
[2021-01-27] MEDS: ASCORBIC ACID 1,000 MG TAB PO SCH (09:37)
[2021-01-27] MEDS: CLOPIDOGREL BISULFATE 75 MG TAB PO SCH (09:37)
[2021-01-27] MEDS: DexAMETHasone SOD PHOS 10MG/1ML VIAL INJ IV SCH (09:37)
[2021-01-27] MEDS: FLORASTOR (S. BOULARDII) 250 MG CAP PO SCH ×2 (09:37→21:13)
[2021-01-27] MEDS: PHENYLEPHRINE IV 250 ML IV SCH ×2 (10:05→18:25)
[2021-01-27] MEDS: SODIUM CHLOR 0.9% PF (SALINE LOCK) 10ML VIAL/SYR IV SCH ×2 (10:21→21:12)
[2021-01-27] MEDS ORDERED: SODIUM BICARBONATE 8.4 % INJ 50ML VIAL IV ONE (12:15)
[2021-01-27] MEDS: PROPOFOL 100 ML IV SCH (18:57)
[2021-01-27] MEDS: ROCURONIUM BROMIDE 1,000 MG in D5W 5% 150 ML IV SCH (19:30)
[2021-01-27] MEDS: fentaNYL Drip 2500mCg/250mlNS 250 ML IV SCH (20:25)
[2021-01-27] MEDS: FAMOTIDINE (10MG/ML) 2ML VL IV SCH (21:11)
[2021-01-27] MEDS: INSULIN LANTUS (GLARGINE) 1 /0.01ml (100units/ml) SC SCH (21:13)
[2021-01-28] VITALS (75 sets, daily range): BP systolic 75–175; BP diastolic 40–66
[2021-01-28] MEDS: PHENYLEPHRINE IV 250 ML IV SCH ×3 (02:45→19:25)
[2021-01-28] MEDS: fentaNYL Drip 2500mCg/250mlNS 250 ML IV SCH ×3 (03:45→19:51)
[2021-01-28 04:44] LABS: Basophils # (auto) 0 10 ^3/uL (0-0.2); Basophils % (auto) 0.3 % (0.0-2.0); Eosinophils # (auto) 0.1 10 ^3/uL (0-0.8); Monocytes # (auto) 0.7 10 ^3/uL (0-1.3)
[2021-01-28 04:47] LABS: Hematocrit 24.8 % (36.0-46.0); Hemoglobin 8.3 g/dL (12.2-16.2); Lymphocytes # (auto) 0.4 10 ^3/uL (0.4-5.4); Lymphocytes % (auto) 3.1 % (10.0-50.0); Mean Corpuscular Hemoglobin 29.9 pg (28.0-32.0); Mean Corpuscular Hgb Conc. 33.6 g/dL (32.0-36.0); Mean Corpuscular Volume 88.9 fL (80.0-100.0); Monocytes % (auto) 5.7 % (0.0-12.0); Neutrophils # (auto) 11.5 10 ^3/uL (1.6-8.6); Neutrophils % (auto) 89.9 % (37.0-80.0); Nucleated Red Blood Cells % 0.5 %; Red Blood Cells 2.79 10^6/uL (4.0-5.20); Red Cell Distribution Width 15.9 % (11.8-14.3); White Blood Cell 12.8 10^3/uL (4.4-10.8)
[2021-01-28 05:05] LABS: Calcium 7.1 mg/dL (8.5-10.1); Magnesium 1.7 mg/dL (1.6-2.6); Potassium 4.4 mmol/L (3.5-5.1)
[2021-01-28 05:10] LABS: BUN/Creatinine Ratio 18.6
[2021-01-28] MEDS: MIDAZOLAM DRIP 50 mg/50mL 50 ML IV SCH ×2 (05:17→09:38)
[2021-01-28] MEDS: PROPOFOL 100 ML IV SCH ×2 (05:51→09:38)
[2021-01-28] MEDS: METOCLOPRAMIDE HCL 5MG/ml INJ 2ml VIAL IV SCH ×3 (05:55→22:02)
[2021-01-28] MEDS: PIPERACILLIN-TAZOB 2.25GM 50 ML IV SCH ×3 (06:33→22:57)
[2021-01-28] MEDS: ACCU-CHEK COMFORT CURVE STRIP VI SCH ×4 (06:33→22:02)
[2021-01-28] MEDS: InsuLIN REG 1unit/0.01ml Soln (100units/ml) SC SCH ×4 (06:33→22:00)
[2021-01-28] MEDS: DexAMETHasone SOD PHOS 10MG/1ML VIAL INJ IV SCH (09:59)
[2021-01-28] MEDS: ASPirin-EC 81 mg tab PO SCH (09:59)
[2021-01-28] MEDS: ASCORBIC ACID 1,000 MG TAB PO SCH (09:59)
[2021-01-28] MEDS: CLOPIDOGREL BISULFATE 75 MG TAB PO SCH (09:59)
[2021-01-28] MEDS: SODIUM CHLOR 0.9% PF (SALINE LOCK) 10ML VIAL/SYR IV SCH ×2 (09:59→22:02)
[2021-01-28] MEDS: CHOLECALCIFEROL (VITD3) 2,000 UNIT CAP/TAB PO SCH (09:59)
[2021-01-28] MEDS: FLORASTOR (S. BOULARDII) 250 MG CAP PO SCH ×2 (09:59→22:02)
[2021-01-28] MEDS ORDERED: ALBUMIN 25% 50 ML IV ONE (14:45)
[2021-01-28] MEDS ORDERED: ATROPINE SULFATE 1 MG/1 ML VIAL ONE (17:33)
[2021-01-28] MEDS: ROCURONIUM BROMIDE 1,000 MG in D5W 5% 150 ML IV SCH (19:30)
[2021-01-28] MEDS ORDERED: EPOETIN ALFA-EPBX 4,000 UNIT/ML VIAL SC ONE (21:00)
[2021-01-28] MEDS: INSULIN LANTUS (GLARGINE) 1 /0.01ml (100units/ml) SC SCH (22:00)
[2021-01-29] VITALS (101 sets, daily range): BP systolic 41–176; BP diastolic 25–73
[2021-01-29] MEDS: MIDAZOLAM DRIP 50 mg/50mL 50 ML IV SCH ×3 (00:38→11:54)
[2021-01-29] MEDS: PROPOFOL 100 ML IV SCH ×3 (02:00→11:52)
[2021-01-29] MEDS: PHENYLEPHRINE IV 250 ML IV SCH ×3 (03:45→20:25)
[2021-01-29] MEDS: fentaNYL Drip 2500mCg/250mlNS 250 ML IV SCH ×2 (04:14→11:53)
[2021-01-29 04:40] LABS: Mean Corpuscular Hemoglobin 30.5 pg (28.0-32.0); Mean Corpuscular Hgb Conc. 34.6 g/dL (32.0-36.0); Mean Corpuscular Volume 88.2 fL (80.0-100.0); Red Cell Distribution Width 15.9 % (11.8-14.3)
[2021-01-29 04:52] LABS: Partial Thromboplastin Time 28.7 sec (23.6-33.0)
[2021-01-29 04:53] LABS: Basophils % (manual) 0 (0.0-2.0); Blast Cells 0; Eosinophils % (manual) 0 (0-7); Metamyelocytes % 0; Myelocytes % 0; Promyelocytes % 0; Reactive Lymphocytes 0
[2021-01-29 05:10] LABS: Calcium 6.7 mg/dL (8.5-10.1); Magnesium 1.7 mg/dL (1.6-2.6)
[2021-01-29] MEDS: METOCLOPRAMIDE HCL 5MG/ml INJ 2ml VIAL IV SCH ×3 (05:28→21:54)
[2021-01-29] MEDS: PIPERACILLIN-TAZOB 2.25GM 50 ML IV SCH ×3 (06:14→23:21)
[2021-01-29] MEDS: ACCU-CHEK COMFORT CURVE STRIP VI SCH ×4 (06:21→21:55)
[2021-01-29] MEDS: InsuLIN REG 1unit/0.01ml Soln (100units/ml) SC SCH ×4 (06:22→21:58)
[2021-01-29] MEDS ORDERED: SODIUM CHL 0.9% 1000 ML BAG XX ONE (07:00)
[2021-01-29] MEDS: NOREPINEPHRINE 8 MG/250ML KIT 250 ML IV SCH ×2 (07:51→09:15)
[2021-01-29] MEDS: DexAMETHasone SOD PHOS 10MG/1ML VIAL INJ IV SCH (08:17)
[2021-01-29] MEDS: FLORASTOR (S. BOULARDII) 250 MG CAP PO SCH ×2 (08:17→21:55)
[2021-01-29] MEDS: CLOPIDOGREL BISULFATE 75 MG TAB PO SCH (08:18)
[2021-01-29] MEDS: ASPirin-EC 81 mg tab PO SCH (08:18)
[2021-01-29] MEDS: ASCORBIC ACID 1,000 MG TAB PO SCH (08:18)
[2021-01-29] MEDS: CHOLECALCIFEROL (VITD3) 2,000 UNIT CAP/TAB PO SCH (08:18)
[2021-01-29] MEDS: SODIUM CHLOR 0.9% PF (SALINE LOCK) 10ML VIAL/SYR IV SCH ×2 (08:18→21:58)
[2021-01-29 08:54] LABS: Band Neutrophils % (manual) 13; Lymphocytes % (manual) 6 (10.0-50.0); Monocytes % (manual) 6 (0-12)
[2021-01-29] MEDS ORDERED: PHENYLEPHRINE IV 250 ML IV ONE (15:35)
[2021-01-29] MEDS: ROCURONIUM BROMIDE 1,000 MG in D5W 5% 150 ML IV SCH (19:30)
[2021-01-29] MEDS: FAMOTIDINE (10MG/ML) 2ML VL IV SCH (21:54)
[2021-01-29] MEDS: INSULIN LANTUS (GLARGINE) 1 /0.01ml (100units/ml) SC SCH (21:55)
[2021-01-29] MEDS ORDERED: EPINEPHrine HCL 1 MG/10 ML SYRG IV ONE (22:12)
[2021-01-30] VITALS (103 sets, daily range): BP systolic 43–189; BP diastolic 24–69
[2021-01-30] MEDS: PHENYLEPHRINE IV 250 ML IV SCH ×3 (04:45→21:25)
[2021-01-30 04:46] LABS: White Blood Cell 16.9 10^3/uL (4.4-10.8)
[2021-01-30 04:50] LABS: Hematocrit 23.9 % (36.0-46.0); Mean Corpuscular Hemoglobin 29.5 pg (28.0-32.0); Mean Corpuscular Hgb Conc. 33.5 g/dL (32.0-36.0); Mean Corpuscular Volume 88.1 fL (80.0-100.0); Red Blood Cells 2.71 10^6/uL (4.0-5.20); Red Cell Distribution Width 15.8 % (11.8-14.3)
[2021-01-30 06:06] LABS: Basophils % (manual) 0 (0.0-2.0); Blast Cells 0; Promyelocytes % 0; Reactive Lymphocytes 0
[2021-01-30] MEDS: ACCU-CHEK COMFORT CURVE STRIP VI SCH ×4 (06:14→21:38)
[2021-01-30] MEDS: InsuLIN REG 1unit/0.01ml Soln (100units/ml) SC SCH ×4 (06:14→22:00)
[2021-01-30] MEDS: PIPERACILLIN-TAZOB 2.25GM 50 ML IV SCH ×3 (06:15→23:28)
[2021-01-30] MEDS: METOCLOPRAMIDE HCL 5MG/ml INJ 2ml VIAL IV SCH ×3 (06:15→21:38)
[2021-01-30 08:26] LABS: Band Neutrophils % (manual) 4; Eosinophils % (manual) 4 (0-7); Lymphocytes % (manual) 2 (10.0-50.0); Metamyelocytes % 2; Monocytes % (manual) 5 (0-12); Myelocytes % 1
[2021-01-30] MEDS: ASPirin-EC 81 mg tab PO SCH (08:48)
[2021-01-30] MEDS: NOREPINEPHRINE 8 MG/250ML KIT 250 ML IV SCH ×2 (08:48→18:08)
[2021-01-30 08:51] LABS: Calcium 6.3 mg/dL (8.5-10.1); Potassium 4.5 mmol/L (3.5-5.1)
[2021-01-30 08:53] LABS: BUN/Creatinine Ratio 18.5
[2021-01-30] MEDS: CLOPIDOGREL BISULFATE 75 MG TAB PO SCH (10:26)
[2021-01-30] MEDS: SODIUM CHLOR 0.9% PF (SALINE LOCK) 10ML VIAL/SYR IV SCH ×2 (10:26→21:38)
[2021-01-30] MEDS: ASCORBIC ACID 1,000 MG TAB PO SCH (10:26)
[2021-01-30] MEDS: FLORASTOR (S. BOULARDII) 250 MG CAP PO SCH ×2 (10:26→21:38)
[2021-01-30] MEDS: DexAMETHasone SOD PHOS 10MG/1ML VIAL INJ IV SCH (10:26)
[2021-01-30] MEDS: CHOLECALCIFEROL (VITD3) 2,000 UNIT CAP/TAB PO SCH (10:27)
[2021-01-30] MEDS: PROPOFOL 100 ML IV SCH (13:30)
[2021-01-30] MEDS: MIDAZOLAM DRIP 50 mg/50mL 50 ML IV SCH (18:58)
[2021-01-30] MEDS: ROCURONIUM BROMIDE 1,000 MG in D5W 5% 150 ML IV SCH (19:30)
[2021-01-30] MEDS: INSULIN LANTUS (GLARGINE) 1 /0.01ml (100units/ml) SC SCH (22:00)
[2021-01-31] VITALS (98 sets, daily range): BP systolic 55–202; BP diastolic 31–296
[2021-01-31] MEDS: MIDAZOLAM DRIP 50 mg/50mL 50 ML IV SCH (04:53)
[2021-01-31] MEDS: NOREPINEPHRINE 8 MG/250ML KIT 250 ML IV SCH (04:54)
[2021-01-31] MEDS: METOCLOPRAMIDE HCL 5MG/ml INJ 2ml VIAL IV SCH ×3 (05:24→22:35)
[2021-01-31] MEDS: PHENYLEPHRINE IV 250 ML IV SCH ×3 (05:45→22:25)
[2021-01-31] MEDS: InsuLIN REG 1unit/0.01ml Soln (100units/ml) SC SCH ×3 (07:00→17:00)
[2021-01-31] MEDS: ACCU-CHEK COMFORT CURVE STRIP VI SCH ×3 (07:00→17:00)
[2021-01-31] MEDS ORDERED: SODIUM CHL 0.9% 1000 ML BAG XX ONE (07:00)
[2021-01-31] MEDS: PIPERACILLIN-TAZOB 2.25GM 50 ML IV SCH ×2 (07:00→15:02)
[2021-01-31 08:51] LABS: Anion Gap 20 (5-15); BUN/Creatinine Ratio 18.6; Blood Urea Nitrogen 77 mg/dL (7-18); Calcium 6.2 mg/dL (8.5-10.1); Carbon Dioxide 11 mmol/L (21-32); Chloride 96 mmol/L (98-107); GFR African American 13 mL/min; GFR Non-African American 11 mL/min; Glucose 149 mg/dL (74-106); Sodium 127 mmol/L (136-145)
[2021-01-31] MEDS: ASPirin-EC 81 mg tab PO SCH (09:25)
[2021-01-31] MEDS: CHOLECALCIFEROL (VITD3) 2,000 UNIT CAP/TAB PO SCH (09:26)
[2021-01-31] MEDS: FLORASTOR (S. BOULARDII) 250 MG CAP PO SCH ×2 (09:26→22:00)
[2021-01-31] MEDS: DexAMETHasone SOD PHOS 10MG/1ML VIAL INJ IV SCH (09:26)
[2021-01-31] MEDS: CLOPIDOGREL BISULFATE 75 MG TAB PO SCH (09:26)
[2021-01-31] MEDS: SODIUM CHLOR 0.9% PF (SALINE LOCK) 10ML VIAL/SYR IV SCH ×2 (09:26→22:00)
[2021-01-31] MEDS: ASCORBIC ACID 1,000 MG TAB PO SCH (09:26)
[2021-01-31] MEDS: fentaNYL Drip 2500mCg/250mlNS 250 ML IV SCH (09:27)
[2021-01-31 10:13] LABS: Hematocrit 22.4 % (36.0-46.0); Hemoglobin 7.3 g/dL (12.2-16.2); Mean Corpuscular Hemoglobin 28.8 pg (28.0-32.0); Mean Corpuscular Hgb Conc. 32.7 g/dL (32.0-36.0); Mean Corpuscular Volume 88.2 fL (80.0-100.0); Red Blood Cells 2.54 10^6/uL (4.0-5.20); White Blood Cell 20.4 10^3/uL (4.4-10.8)
[2021-01-31] MEDS ORDERED: SODIUM BICARBONATE 8.4 % INJ 50ML VIAL IV ONE ×2 (10:15→18:15)
[2021-01-31 10:16] LABS: Basophils % (manual) 0 (0.0-2.0); Blast Cells 0; Myelocytes % 0; Promyelocytes % 0; Reactive Lymphocytes 0
[2021-01-31 13:02] LABS: Band Neutrophils % (manual) 10; Eosinophils % (manual) 1 (0-7); Lymphocytes % (manual) 8 (10.0-50.0); Metamyelocytes % 3; Monocytes % (manual) 4 (0-12)
[2021-01-31] MEDS: PROPOFOL 100 ML IV SCH (13:30)
[2021-01-31] MEDS: ROCURONIUM BROMIDE 1,000 MG in D5W 5% 150 ML IV SCH (19:30)
[2021-01-31] MEDS: INSULIN LANTUS (GLARGINE) 1 /0.01ml (100units/ml) SC SCH (22:00)
[2021-01-31] MEDS: FAMOTIDINE (10MG/ML) 2ML VL IV SCH (22:35)
[2021-01-31] MEDS ORDERED: DEXTROSE (50%) 50ML SYRG IV PRN (23:30)
[2021-02-01] VITALS (105 sets, daily range): BP systolic 39–198; BP diastolic 30–84
[2021-02-01] MEDS: PIPERACILLIN-TAZOB 2.25GM 50 ML IV SCH ×3 (00:45→17:26)
[2021-02-01 04:36] LABS: Basophils # (auto) 0.1 10 ^3/uL (0-0.2); Basophils % (auto) 0.3 % (0.0-2.0); Eosinophils # (auto) 0.1 10 ^3/uL (0-0.8); Hematocrit 20.5 % (36.0-46.0); Neutrophils # (auto) 16.3 10 ^3/uL (1.6-8.6); Nucleated Red Blood Cells % 0.6 %; Red Blood Cells 2.33 10^6/uL (4.0-5.20)
[2021-02-01 04:38] LABS: BUN/Creatinine Ratio 18.1; Calcium 6.6 mg/dL (8.5-10.1); Potassium 4.1 mmol/L (3.5-5.1)
[2021-02-01 04:45] LABS: Eosinophils % (auto) 0.4 % (0.0-7.0); Lymphocytes # (auto) 0.8 10 ^3/uL (0.4-5.4); Lymphocytes % (auto) 4.1 % (10.0-50.0); Mean Corpuscular Hemoglobin 29.7 pg (28.0-32.0); Mean Corpuscular Hgb Conc. 33.7 g/dL (32.0-36.0); Mean Corpuscular Volume 88.1 fL (80.0-100.0); Monocytes # (auto) 1.3 10 ^3/uL (0-1.3); Monocytes % (auto) 7.1 % (0.0-12.0); Neutrophils % (auto) 88.1 % (37.0-80.0); Red Cell Distribution Width 16.2 % (11.8-14.3); White Blood Cell 18.6 10^3/uL (4.4-10.8)
[2021-02-01 04:47] LABS: Hemoglobin 6.9 g/dL (12.2-16.2)
[2021-02-01] MEDS: METOCLOPRAMIDE HCL 5MG/ml INJ 2ml VIAL IV SCH ×3 (05:58→21:55)
[2021-02-01] MEDS: ACCU-CHEK COMFORT CURVE STRIP VI SCH ×5 (05:58→22:00)
[2021-02-01] MEDS: InsuLIN REG 1unit/0.01ml Soln (100units/ml) SC SCH ×5 (05:59→21:55)
[2021-02-01] MEDS: PHENYLEPHRINE IV 250 ML IV SCH ×3 (06:45→23:25)
[2021-02-01] MEDS ORDERED: BUMETANIDE 2.5mg/10ml (0.25 mg/ml) INJ IV ONE (07:30)
[2021-02-01] MEDS: NOREPINEPHRINE 8 MG/250ML KIT 250 ML IV SCH (09:15)
[2021-02-01] MEDS: ASPirin-EC 81 mg tab PO SCH (09:46)
[2021-02-01] MEDS: SODIUM CHLOR 0.9% PF (SALINE LOCK) 10ML VIAL/SYR IV SCH ×2 (09:46→22:00)
[2021-02-01] MEDS: DexAMETHasone SOD PHOS 10MG/1ML VIAL INJ IV SCH (09:46)
[2021-02-01] MEDS: ASCORBIC ACID 1,000 MG TAB PO SCH (09:47)
[2021-02-01] MEDS: CHOLECALCIFEROL (VITD3) 2,000 UNIT CAP/TAB PO SCH (09:47)
[2021-02-01] MEDS: CLOPIDOGREL BISULFATE 75 MG TAB PO SCH (10:00)
[2021-02-01] MEDS: fentaNYL Drip 2500mCg/250mlNS 250 ML IV SCH (11:00)
[2021-02-01] MEDS: PROPOFOL 100 ML IV SCH (11:20)
[2021-02-01] MEDS ORDERED: CLINIMIX PER PHARMACY 0 ML IV SCH (11:30)
[2021-02-01] MEDS: MIDAZOLAM DRIP 50 mg/50mL 50 ML IV SCH ×3 (12:00→21:14)
[2021-02-01 12:03] LABS: Phosphorus 8.3 mg/dL (2.5-4.90); Pre Albumin 11.8 mg/dL (20.0-40.0)
[2021-02-01] MEDS: ROCURONIUM BROMIDE 1,000 MG in D5W 5% 150 ML IV SCH (17:27)
[2021-02-01] MEDS ORDERED: AMINO ACID INFUSION IN D10W 1,000 ML IV NR (20:00)
[2021-02-01] MEDS: INSULIN LANTUS (GLARGINE) 1 /0.01ml (100units/ml) SC SCH (22:00)
[2021-02-02] VITALS (103 sets, daily range): BP systolic -19–234; BP diastolic 31–227
[2021-02-02] MEDS: PIPERACILLIN-TAZOB 2.25GM 50 ML IV SCH ×4 (00:24→22:45)
[2021-02-02] MEDS: InsuLIN REG 1unit/0.01ml Soln (100units/ml) SC SCH ×4 (00:24→18:00)
[2021-02-02] MEDS: ACCU-CHEK COMFORT CURVE STRIP VI SCH ×5 (00:25→22:00)
[2021-02-02] MEDS: MIDAZOLAM DRIP 50 mg/50mL 50 ML IV SCH ×4 (01:59→22:04)
[2021-02-02 04:39] LABS: Hemoglobin 8.1 g/dL (12.2-16.2)
[2021-02-02 04:41] LABS: Hematocrit 23.8 % (36.0-46.0); Mean Corpuscular Hemoglobin 30.2 pg (28.0-32.0); Mean Corpuscular Hgb Conc. 34.1 g/dL (32.0-36.0); Mean Corpuscular Volume 88.8 fL (80.0-100.0); Red Blood Cells 2.68 10^6/uL (4.0-5.20); Red Cell Distribution Width 15.6 % (11.8-14.3); White Blood Cell 19.2 10^3/uL (4.4-10.8)
[2021-02-02 04:53] LABS: Basophils % (manual) 0 (0.0-2.0); Blast Cells 0; Eosinophils % (manual) 0 (0-7); Metamyelocytes % 0; Promyelocytes % 0; Reactive Lymphocytes 0
[2021-02-02 04:54] LABS: Potassium 4.1 mmol/L (3.5-5.1)
[2021-02-02 05:05] LABS: Albumin 1.2 g/dL (3.4-5.0); Calcium 6.6 mg/dL (8.5-10.1); Magnesium 2.3 mg/dL (1.6-2.6); Phosphorus 8.1 mg/dL (2.5-4.90); Total Protein 5.3 g/dL (6.4-8.2)
[2021-02-02 05:17] LABS: Band Neutrophils % (manual) 33; Lymphocytes % (manual) 2 (10.0-50.0); Monocytes % (manual) 5 (0-12); Myelocytes % 2
[2021-02-02] MEDS: METOCLOPRAMIDE HCL 5MG/ml INJ 2ml VIAL IV SCH ×3 (05:23→21:59)
[2021-02-02] MEDS ORDERED: SODIUM CHL 0.9% 1000 ML BAG XX ONE (07:00)
[2021-02-02] MEDS: PHENYLEPHRINE IV 250 ML IV SCH ×3 (07:45→22:00)
[2021-02-02] MEDS: NOREPINEPHRINE 8 MG/250ML KIT 250 ML IV SCH ×2 (09:15→22:01)
[2021-02-02] MEDS: SODIUM CHLOR 0.9% PF (SALINE LOCK) 10ML VIAL/SYR IV SCH ×2 (10:00→21:59)
[2021-02-02] MEDS: DexAMETHasone SOD PHOS 10MG/1ML VIAL INJ IV SCH (11:05)
[2021-02-02] MEDS: ASPirin-EC 81 mg tab PO SCH (11:06)
[2021-02-02] MEDS: CLOPIDOGREL BISULFATE 75 MG TAB PO SCH (11:06)
[2021-02-02] MEDS: PROPOFOL 100 ML IV SCH (13:30)
[2021-02-02] MEDS ORDERED: ALBUMIN 25% 100 ML IV ONE (16:15)
[2021-02-02] MEDS ORDERED: ATROPINE SULFATE 1 MG/1 ML VIAL ONE (17:43)
[2021-02-02] MEDS: ROCURONIUM BROMIDE 1,000 MG in D5W 5% 150 ML IV SCH (19:30)
[2021-02-02] MEDS ORDERED: AMINO ACID INFUSION IN D10W 1,000 ML IV NR (20:00)
[2021-02-02] MEDS ORDERED: EPOETIN ALFA-EPBX 10,000 UNIT/1ML VIAL SC ONE (21:00)
[2021-02-02] MEDS: FAMOTIDINE (10MG/ML) 2ML VL IV SCH (21:58)
[2021-02-02] MEDS: INSULIN LANTUS (GLARGINE) 1 /0.01ml (100units/ml) SC SCH (22:44)
[2021-02-03] VITALS (138 sets, daily range): BP systolic 76–184; BP diastolic 33–85
[2021-02-03] MEDS: InsuLIN REG 1unit/0.01ml Soln (100units/ml) SC SCH ×5 (00:40→23:24)
[2021-02-03] MEDS: MIDAZOLAM DRIP 50 mg/50mL 50 ML IV SCH (00:43)
[2021-02-03 04:47] LABS: Mean Corpuscular Hemoglobin 29.7 pg (28.0-32.0); Mean Corpuscular Hgb Conc. 33.4 g/dL (32.0-36.0); Red Blood Cells 2.36 10^6/uL (4.0-5.20); Red Cell Distribution Width 15.9 % (11.8-14.3); White Blood Cell 14.5 10^3/uL (4.4-10.8)
[2021-02-03 05:01] LABS: Potassium 3.6 mmol/L (3.5-5.1)
[2021-02-03 05:05] LABS: Albumin 1.7 g/dL (3.4-5.0); BUN/Creatinine Ratio 18.2; Bilirubin, Total 0.8 mg/dL (0.2-1.0); Calcium 6.9 mg/dL (8.5-10.1); Magnesium 1.9 mg/dL (1.6-2.6); Phosphorus 6.6 mg/dL (2.5-4.90); Total Protein 5.2 g/dL (6.4-8.2)
[2021-02-03 05:34] LABS: Basophils % (manual) 0 (0.0-2.0); Blast Cells 0; Metamyelocytes % 0; Promyelocytes % 0; Reactive Lymphocytes 0
[2021-02-03] MEDS: ACCU-CHEK COMFORT CURVE STRIP VI SCH ×4 (05:57→23:24)
[2021-02-03] MEDS: METOCLOPRAMIDE HCL 5MG/ml INJ 2ml VIAL IV SCH ×3 (05:57→20:16)
[2021-02-03] MEDS: PIPERACILLIN-TAZOB 2.25GM 50 ML IV SCH ×3 (06:22→23:23)
[2021-02-03 07:09] LABS: Band Neutrophils % (manual) 30; Eosinophils % (manual) 1 (0-7); Lymphocytes % (manual) 1 (10.0-50.0); Monocytes % (manual) 8 (0-12); Myelocytes % 3
[2021-02-03] MEDS: PHENYLEPHRINE IV 250 ML IV SCH ×2 (08:45→17:05)
[2021-02-03] MEDS: DexAMETHasone SOD PHOS 10MG/1ML VIAL INJ IV SCH (10:38)
[2021-02-03] MEDS: SODIUM CHLOR 0.9% PF (SALINE LOCK) 10ML VIAL/SYR IV SCH ×2 (10:38→23:22)
[2021-02-03] MEDS: PROPOFOL 100 ML IV SCH (13:30)
[2021-02-03] MEDS: ROCURONIUM BROMIDE 1,000 MG in D5W 5% 150 ML IV SCH (19:30)
[2021-02-03] MEDS ORDERED: AMINO ACID INFUSION IN D10W 1,000 ML IV NR (20:00)
[2021-02-03] MEDS: INSULIN LANTUS (GLARGINE) 1 /0.01ml (100units/ml) SC SCH (23:22)
[2021-02-04] VITALS (104 sets, daily range): BP systolic 45–239; BP diastolic 25–106
[2021-02-04] MEDS: PHENYLEPHRINE IV 250 ML IV SCH ×3 (01:25→18:05)
[2021-02-04] MEDS: METOCLOPRAMIDE HCL 5MG/ml INJ 2ml VIAL IV SCH ×3 (01:31→21:08)
[2021-02-04 04:37] LABS: Red Cell Distribution Width 15.9 % (11.8-14.3)
[2021-02-04 04:39] LABS: Hematocrit 20.9 % (36.0-46.0); Hemoglobin 7.2 g/dL (12.2-16.2); Mean Corpuscular Hemoglobin 30.3 pg (28.0-32.0); Mean Corpuscular Hgb Conc. 34.3 g/dL (32.0-36.0); Mean Corpuscular Volume 88.4 fL (80.0-100.0); Red Blood Cells 2.37 10^6/uL (4.0-5.20); White Blood Cell 12.9 10^3/uL (4.4-10.8)
[2021-02-04 04:42] LABS: Basophils % (manual) 0 (0.0-2.0); Blast Cells 0; Eosinophils % (manual) 0 (0-7); Promyelocytes % 0; Reactive Lymphocytes 0
[2021-02-04 04:57] LABS: Albumin 1.5 g/dL (3.4-5.0); BUN/Creatinine Ratio 19.4; Bilirubin, Total 0.8 mg/dL (0.2-1.0); Magnesium 1.9 mg/dL (1.6-2.6); Phosphorus 5.4 mg/dL (2.5-4.90); Total Protein 5.2 g/dL (6.4-8.2)
[2021-02-04] MEDS: InsuLIN REG 1unit/0.01ml Soln (100units/ml) SC SCH ×3 (05:18→18:00)
[2021-02-04 05:21] LABS: Potassium 2.9 mmol/L (3.5-5.1)
[2021-02-04] MEDS: ACCU-CHEK COMFORT CURVE STRIP VI SCH ×3 (05:23→18:23)
[2021-02-04] MEDS: PIPERACILLIN-TAZOB 2.25GM 50 ML IV SCH ×3 (05:24→18:21)
[2021-02-04 05:27] LABS: Band Neutrophils % (manual) 10; Lymphocytes % (manual) 13 (10.0-50.0); Metamyelocytes % 1; Monocytes % (manual) 1 (0-12); Myelocytes % 4
[2021-02-04] MEDS ORDERED: POTASSIUM EFFERVESENT TAB 25 MEQ GT ONE (06:30)
[2021-02-04] MEDS: NOREPINEPHRINE 8 MG/250ML KIT 250 ML IV SCH (09:15)
[2021-02-04] MEDS: DexAMETHasone SOD PHOS 10MG/1ML VIAL INJ IV SCH (10:00)
[2021-02-04] MEDS: SODIUM CHLOR 0.9% PF (SALINE LOCK) 10ML VIAL/SYR IV SCH (10:00)
[2021-02-04] MEDS ORDERED: PANTOPRAZOLE 40 MG/10 ML VIAL INJ IV ONE (10:45)
[2021-02-04] MEDS: PROPOFOL 100 ML IV SCH (13:30)
[2021-02-04] MEDS: ROCURONIUM BROMIDE 1,000 MG in D5W 5% 150 ML IV SCH (19:30)
[2021-02-04] MEDS: MIDAZOLAM DRIP 50 mg/50mL 50 ML IV SCH (19:45)
[2021-02-04] MEDS ORDERED: AMINO ACID INFUSION IN D10W 1,000 ML IV NR (20:00)
[2021-02-04] MEDS: INSULIN LANTUS (GLARGINE) 1 /0.01ml (100units/ml) SC SCH (22:00)
[2021-02-04] MEDS ORDERED: PANTOPRAZOLE 40 MG/10 ML VIAL INJ IV SCH (22:00)
[2021-02-05] VITALS (16 sets, daily range): BP systolic 27–101; BP diastolic 19–44
[2021-02-05] MEDS: ACCU-CHEK COMFORT CURVE STRIP VI SCH
[2021-02-05] MEDS: SODIUM CHLOR 0.9% PF (SALINE LOCK) 10ML VIAL/SYR IV SCH (01:40)
[2021-02-05] MEDS: PHENYLEPHRINE IV 250 ML IV SCH (01:42)
[2021-02-05] MEDS: METOCLOPRAMIDE HCL 5MG/ml INJ 2ml VIAL IV SCH (02:29)
[2021-02-05] MEDS: InsuLIN REG 1unit/0.01ml Soln (100units/ml) SC SCH ×2 (02:29)
== END 2021-02-05 03:05 | DRG 870 ==
LOC: EDBD 22:40 → ER 22:42 → TELE 01-01 09:00 → TELE-EAST 01-01 11:11 → TELE-E-ADS 01-07 01:22 → ICU WEST 01-15 07:42
PROVIDERS: ADMIT Internal Medicine; ATTEND Internal Medicine
PROC: XW033E5 Introduction of Remdesivir Anti-infective into Peripheral Vein, Percutaneous Approach, New Technology Group 5 (ICD-10-PCS; 2021-01-01)
PROC: 5A1955Z Respiratory Ventilation, Greater than 96 Consecutive Hours (ICD-10-PCS; 2021-01-15)
PROC: 06HY33Z Insertion of Infusion Device into Lower Vein, Percutaneous Approach (ICD-10-PCS; 2021-01-15)
PROC: 0BH17EZ Insertion of Endotracheal Airway into Trachea, Via Natural or Artificial Opening (ICD-10-PCS; 2021-01-15)
PROC: 5A1D70Z Performance of Urinary Filtration, Intermittent, Less than 6 Hours Per Day (ICD-10-PCS; 2021-01-16)
PROC: B54CZZA Ultrasonography of Left Lower Extremity Veins, Guidance (ICD-10-PCS; 2021-01-16)
PROC: 06HY33Z Insertion of Infusion Device into Lower Vein, Percutaneous Approach (ICD-10-PCS; 2021-01-16)
PROC: 5A1D70Z Performance of Urinary Filtration, Intermittent, Less than 6 Hours Per Day (ICD-10-PCS; principal; 2021-01-18)
PROC: 5A1D70Z Performance of Urinary Filtration, Intermittent, Less than 6 Hours Per Day (ICD-10-PCS; 2021-01-20)
PROC: 30233N1 Transfusion of Nonautologous Red Blood Cells into Peripheral Vein, Percutaneous Approach (ICD-10-PCS; 2021-01-22)
PROC: 5A1D70Z Performance of Urinary Filtration, Intermittent, Less than 6 Hours Per Day (ICD-10-PCS; 2021-01-22)
PROC: 5A1D70Z Performance of Urinary Filtration, Intermittent, Less than 6 Hours Per Day (ICD-10-PCS; 2021-01-24)
PROC: 5A1D70Z Performance of Urinary Filtration, Intermittent, Less than 6 Hours Per Day (ICD-10-PCS; 2021-01-28)
PROC: 5A1D70Z Performance of Urinary Filtration, Intermittent, Less than 6 Hours Per Day (ICD-10-PCS; 2021-02-01)
PROC: 5A1D70Z Performance of Urinary Filtration, Intermittent, Less than 6 Hours Per Day (ICD-10-PCS; 2021-02-02)
DX: A41.89 Other specified sepsis (principal); U07.1 COVID-19; J12.82 Pneumonia due to coronavirus disease 2019; G93.41 Metabolic encephalopathy; J96.01 Acute respiratory failure with hypoxia; R65.21 Severe sepsis with septic shock; N17.0 Acute kidney failure with tubular necrosis; N18.6 End stage renal disease; E46 Unspecified protein-calorie malnutrition; N39.0 Urinary tract infection, site not specified; E87.1 Hypo-osmolality and hyponatremia; J98.11 Atelectasis; E87.2 Acidosis; Z99.11 Dependence on respirator [ventilator] status; I13.2 Hypertensive heart and chronic kidney disease with heart failure and with stage 5 chronic kidney disease, or end stage renal disease; I50.32 Chronic diastolic (congestive) heart failure; K92.2 Gastrointestinal hemorrhage, unspecified; Z66 Do not resuscitate; D69.6 Thrombocytopenia, unspecified; E88.09 Other disorders of plasma-protein metabolism, not elsewhere classified; E66.9 Obesity, unspecified; F03.90 Unspecified dementia, unspecified severity, without behavioral disturbance, psychotic disturbance, mood disturbance, and anxiety; D63.1 Anemia in chronic kidney disease; E87.5 Hyperkalemia; E87.6 Hypokalemia; M19.90 Unspecified osteoarthritis, unspecified site; E11.21 Type 2 diabetes mellitus with diabetic nephropathy; B95.1 Streptococcus, group B, as the cause of diseases classified elsewhere; B96.20 Unspecified Escherichia coli [E. coli] as the cause of diseases classified elsewhere; E11.22 Type 2 diabetes mellitus with diabetic chronic kidney disease; Z79.4 Long term (current) use of insulin; Z68.33 Body mass index [BMI] 33.0-33.9, adult; Z99.2 Dependence on renal dialysis; Z88.5 Allergy status to narcotic agent; Z88.8 Allergy status to other drugs, medicaments and biological substances; Z90.49 Acquired absence of other specified parts of digestive tract
CPT/HCPCS: 36415; 36569; 36600; 71045; 74018; 80048; 80053; 81001; 82040; 82270; 82805; 82962; 83036; 83735; 83880; 84100; 84478; 84484; 85007; 85014; 85018; 85025; 85027; 85379; 85610; 85730; 86850; 86900; 86901; 86920; 87070; 87077; 87086; 87088; 87186; 87205; 87340; 87426; 90935; 93005; 93971; 94003; 94640; 94660; 96365; 96366; 96376; 97110; 97116; 97163; 97530; A4618; C9113; G0378; J0330; J0461; J0696; J1100; J1642; J1815; J2250; J2543; J2704; J3490; J7060; P9047